=== PATIENT | female | born 1955 | race Caucasian/White ===

== ENCOUNTER → 2021-08-15 12:42 | Outpatient (CLI) | payer MEDICARE, SELFPAY ==
--- NOTE | ~2021-08-15 | MM_ITS ---
EXAMINATION: MM screening yvette BI w vega HISTORY: Screening TECHNIQUE: Craniocaudal and mediolateral oblique 3-D tomosynthesis images were obtained and synthetic 2-D images were generated. CAD analysis was submitted and interpreted. COMPARISON: 08/30/2011 BREAST PARENCHYMAL COMPOSITION: Breast composed of scattered areas of fibroglandular density FINDINGS: There is no evidence of suspicious mass, calcification, or architectural distortion to sugg est malignancy in either breast. There has been no suspicious interval change. IMPRESSION: 1. No mammographic evidence of malignancy. 2. Recommend routine screening mammography in one year. BI-RADS Category 1: Negative Reviewed, dictated and finalized at location A.
== END ==
DX: Z12.31 Encounter for screening mammogram for malignant neoplasm of breast (principal)
CPT/HCPCS: 77063; 77067

== ENCOUNTER 2021-12-27 07:40 | Outpatient (CLI) | payer MEDICARE, SELFPAY | END 2021-12-27 07:41 | disposition home or self-care (01) | LOC: ANHAUDIO 07:41 | PROVIDERS: PCP Family Medicine; Visit Provider Otolaryngology | DX: H93.13 Tinnitus, bilateral (principal); H90.3 Sensorineural hearing loss, bilateral | CPT/HCPCS: 92557; 92567 ==

== ENCOUNTER → 2022-12-04 13:43 | Outpatient (CLI) | payer MEDICARE, SELFPAY ==
--- NOTE | ~2022-12-04 | MM_ITS ---
EXAMINATION: MM scrn yvette implant BI w vega HISTORY: Screening mammogram TECHNIQUE: Craniocaudal and mediolateral oblique 3-D tomosynthesis images with implant displacement a nd synthetic 2-D images were generated. Craniocaudal and mediolateral oblique views of the breasts wi thout implant displacement were obtained using full field digital mammography. CAD analysis was submi tted and interpreted. COMPARISON: 08/15/2021, 04/28/2019, 12/26/2015 BREAST PARENCHYMAL COMPOSITION: There are scattered areas of fibroglandular density. FINDINGS: There are changes of interval bilateral breast augmentation. There is no evidence of suspic ious mass, calcification, or architectural distortion to suggest malignancy in either breast. IMPRESSION: 1. No mammographic evidence of malignancy. 2. Recommend routine screening mammography in one year. BI-RADS Category 1: Negative Reviewed, dictated and finalized at location A.
== END ==
DX: Z12.31 Encounter for screening mammogram for malignant neoplasm of breast (principal)
CPT/HCPCS: 77063; 77067

== ENCOUNTER 2024-02-18 11:00 | Outpatient (CLI) | payer MEDICARE, SELFPAY ==
--- NOTE | ~2024-02-18 | MM_ITS ---
EXAMINATION: MM scrn yvette implant BI w vega HISTORY: Screening mammogram TECHNIQUE: Craniocaudal and mediolateral oblique 3-D tomosynthesis images with implant displacement a nd synthetic 2-D images were generated. Craniocaudal and mediolateral oblique views of the breasts wi thout implant displacement were obtained using full field digital mammography. CAD analysis was submi tted and interpreted. COMPARISON: Comparison to multiple prior studies sequentially, with oldest reviewed study dated 12/25. BREAST PARENCHYMAL COMPOSITION: Dense: The breasts are heterogeneously dense, which may obscure small masses FINDINGS: There is no evidence of suspicious mass, calcification, or architectural distortion to sugg est malignancy in either breast. There has been no suspicious interval change. IMPRESSION: 1. No mammographic evidence of malignancy. 2. Recommend routine screening mammography in one year. BI-RADS Category 1: Negative Reviewed, dictated and finalized at location B.
== END 2024-02-18 11:01 | disposition home or self-care (01) ==
LOC: MICIMG 11:02
DX: Z12.31 Encounter for screening mammogram for malignant neoplasm of breast (principal)
CPT/HCPCS: 77063; 77067

== ENCOUNTER 2024-07-06 16:24 | Emergency (ER) | payer MEDICARE, SELFPAY ==
[2024-07-06 16:29] VITALS: BP 146/89; PULSE 92; RESP 20; TEMP 37.2; O2SAT 95
[2024-07-06 16:40] LABS: Glucose Point of Care 131 mg/dl (65-105)
[2024-07-06 18:30] VITALS: BP 113/86; PULSE 87; RESP 18; TEMP 36.8; O2SAT 97
--- OUTSIDE RECORDS SUMMARY | 2024-07-06 18:40 | XMS_ITS | Encounter Summary ---
Author Organization [facility] Address [address] [address] Phone Care Team Providers Care Microfilm Mounter Name Role Phone Ember Sahni MD Primary Care Provider + Encounter Details Date Type Department Care Team (Late st Contact Info) Description 03/18/2023 Orders Only [facility] [address] [facility] 5th [address] [place], [place] [id number] Scanning, Provider Social History Tobacco Use Types Packs/Day Years Used Date Smoking Tobacco: Never Smokeless Tobacco: Never AUDIT-C Answer Date Recorded Q1: How often do you have a drink containing alc ohol? 2-4 times a month 02/13/2023 Q2: How many drinks containi ng alcohol do you have on a typical day when you are drinking? 1 or 2 02/13/2023 Q3: How often do you have si x or more drinks on one occasion? Never 02/13/2023 Comments No Sex and Gender Information Value Date Recorded Sex Assigned at Not on file Legal Sex Female 2:14 AM LOOM TECHNICIAN Gender Identity Not on file Sexual Orientation Not on file documented as of this encounter Plan of Treatment Not on file documented as of this encounter Goals Goal Patient Goal Type Associated Problems Recent Progress Patient-Stated? Author CCM Chronic Pain Care Plan Chronic Care Management No change(05/08 9:34 AM LOOM TECHNICIAN) No Marla Luna, RN Note: Problem: Chronic Pain Goals: 1. Minimize further functional decline 2. Maximize quality of life 3. Control pain Strategies: - Activity/exercise program recommendation - Conservative stepwise pain medicine strategy with multi-disciplinary approach - Recommend healthy lifestyle strategies and compensatory methods as needed documented as of this encounter Procedures Procedure Name Priority Date/Time Associated Diagnosis Comments SCAN - LABS 03/18/2023 documented in this encounter Results * SCAN - LABS (03/18/2023) us Provider Scanning Final Result documented in this encounter Visit Diagnoses Not on filedocumented in this encounter Additional Health Concerns Infection Onset Date Last Indicated Resolved Time MDR gram neg/ESBL Comment:Patients who received care at a healthcare facility outside of the [place] will be placed in Contact Precautions until infection or colonization with specific highly resistant bacteria can be ruled out. Infection Prevention will arrange screening. Please contact Infection Prevention. 04/01/2023 04/01/2023 12/05/2023 7:12 AM C DT documented as of this encounter Care Teams Microfilm Mounter Relationship Specialty Start Date End Date Ember Sahni MD [address] [address] PCP - General Internal Medicine 02/11/19 documented as of this encounter
--- OUTSIDE RECORDS SUMMARY | 2024-07-06 18:40 | XMS_ITS | Clinical Summary ---
Author Organization [facility] Address [address] [facility] [place] [address] Care Team Providers Care Clerical Manager Name Role Phone Satnam Madrigal MD Primary Care Provider [phone] Jefry Cho MD Unavailable Source Comments [facility] [employer],non-owned Affiliates and Associated Physician Practices is amultiple site organization consisting of ambulatory clinics and hospital sitesin [place], [place], [place] and [place]. This disclosure is being madepursuant to the Care Everywhere program and may not contain all information available regarding this patient. Last updated 18.[facility] Allergies No known active allergies Medications * Be aware that medications may not be up to date on this document. Alwaysverify current medications with the patient. Medication Sig Dispensed Refills Start Date End Date Status levothyroxine (SYNTHROID) 100 MCG tablet Take 100 mcg by mouth 2 times daily Active escitalopram (LEXAPRO) 20 MG tablet Take 20 mg by mouth once daily 2 06/20/2017 Active celecoxib (CELEBREX) 200 MG capsule Take 200 mg by mouth once daily 1 06/19/2017 Active loratadine (CLARITIN) 10 MG tablet Take 10 mg by mouth once daily Active naltrexone (REVIA) 50 MG tablet Take 50 mg by mouth once daily Active prazosin (MINIPRESS) 1 MG capsule Take 1 mg by mouth 2 times daily Active cariprazine (VRAYLAR) 3 MG capsule Take 3 mg by mouth at bedtime Active oxyCODONE-acetaminoph en (PERCOCET) 10-325 MG tabletIndications:Opal n Take 1 tablet by mouth every 6 hours as needed for Pain Reasons: Pain 75 tablet 12/08/2017 Active Active Problems Problem Noted Date Diagnosed Date Iliotibial band syndrome of left side 2019 Presence of left artificial knee joint 9 Status post left knee replacement 11/06/2017 Alcoholism 10/17/2017 Avascular necrosis of left femur 07/21/2017 Bipolar disorder 07/21/2017 Hypertensive disorder 07/21/2017 Hyperlipidemia 07/21/2017 Hypothyroidism 05/12/2014 Social History Tobacco Use Types Packs/Day Years Used Date Smoking Tobacco: Never Smokeless Tobacco: Never Alcohol Use Standard Drinks/Week Comments Yes 0 (1 standard drink = 0.6 oz pur e alcohol) rarely Sex and Gender Information Value Date Recorded Sex Assigned at Not on file Gender Identity Not on file Sexual Orientation Not on file Last Filed Vital Signs Vital Sign Reading Time Taken Comments Blood Pressure 108/68 11/08/2017 8:04 AM CDT Pulse 105 11/08/2017 8:04 AM CDT Temperature 36.9 C (98.4 F) 11/08/2017 8:04 AM CDT Respiratory Rate 18 11/08/2017 8:04 AM CDT Oxygen Saturation 90% 11/08/2017 8:04 AM CDT Inhaled Oxygen Concentration - - Weight 73 kg (161 lb) 11/06/2017 6:55 AM CDT Height 160 cm (5' 3 ) 11/06/2017 6:55 AM CDT Body Mass Index 28.52 11/06/2017 6:55 AM CDT Plan of Treatment Health Maintenance Due Date Last Done Comments BONE DENSITY TESTING 1955 COLOGUARD (AGES 45-75) - COLON CA SCREENING 1954 COLON MONITORING 1954 COLONOSCOPY - COLON CA SCREENING 1954 CT COLONOGRAPHY - COLON CA SCREENING 1954 Colorectal Cancer Screening 1954 FIT - COLON CA SCREENING 1954 FLEX SIG - COLON CA SCREENING 1954 LIPID TESTING 1954 MAMMOGRAM 1954 HEPATITIS C SCREENING 03/26/1972 DTAP/TDAP/TD VACCINES (1 - Tdap) 1973 PNEUMOCOCCAL VACCINE 50+ (1 of 2 - PCV) 1973 ZOSTER VACCINE (1 of 2) 2004 COVID-19 VACCINE (2023- season) 2024 INFLUENZA VACCINE (#1) 2024 7, 02/26/2017, 03/11/2015, Additional history exists Respiratory Syncytial Virus (RSV) Vaccine Pt: or over 60 yrs (1 - 1-dose 75+ series) 2029 HEPATITIS B VACCINE Aged Out No longe r eligible based on patient's age to complete this topic HIB VACCINE Aged Out No longer eligi ble based on patient's age to complete this topic HPV VACCINE Aged Out No longer eligi ble based on patient's age to complete this topic MENINGOCOCCAL (Group B) VACCINE Aged Out No longer eligible based on patient's age to complete this topic MENINGOCOCCAL VACCINE Aged Out No lavern maria de jesus eligible based on patient's age to complete this topic Medical Devices Implanted Type Area Freight Receiver Device Identifier Shelf Expiration Date Model / Serial / Lot Cmnt Bone Cblt 40gm Hvisc Strl Implanted:Qty: 1 on 11/06/2017 by Jefry Cho MD at [facility] Left: Knee [employer] 01/09/2019 600-15-000 / / [id number] Tray Tib 67mm Kn Cocr I Beam Implanted:Qty: 1 on 11/06/2017 by Jefry Cho MD at [facility] Left: Knee [employer] 08/04/2027 [id number] / / [id number] Cmpnt Fem Kn Lt Cr Cmnt Prm Vngrd Intlk 60mm Implanted:Qty: 1 on 11/06/2017 by Jefry Cho MD at [facility] Left: Knee [employer] 07/16/2027 [id number] / / [id number] Cmpnt Ptlr 28mm 1 Pg Wire Ascnt Arcm Kn Implanted:Qty: 1 on 11/06/2017 by Jefry Cho MD at [facility] Left: Knee [employer] 10/21/2022 [id number] / / [id number] [id number] Vngrd Arcm Kn Ant Stab Implanted:Qty: 1 on 11/06/2017 by Jefry Cho MD at [facility] Left: Knee [employer] 10/08/2022 [id number] / / [id number] Advance Directives * Full Code (Latest Code Status on File) Date Activated Date Inactivated Comments 11/06/2017 12:11 PM 11/08/2017 12:42 PM Care Teams Clerical Manager Relationship Specialty Start Date End Date Satnam Madrigal MD PCP - General Internal Medicine 07/21/17 [place] [id number] [address] Orthopedic Surgery 07/21/17
--- OUTSIDE RECORDS SUMMARY | 2024-07-06 18:40 | XMS_ITS | Patient Health Summary ---
Author Organization [facility] Address [address] [facility] [place] [address] Care Team Providers Care Manager Sales And Marketing Name Role Phone Satnam Madrigal MD Primary Care Provider [phone] Jefry Cho MD Unavailable [phone] Note from [facility],non-owned Affiliates and Associated Physician Practices is amultiple site organization consisting of ambulatory clinics and hospital sitesin [place], [place], [place] and [place]. This disclosure is being madepursuant to the Care Everywhere program and may not contain all information available regarding this patient. Last updated 18.[facility] Allergies No known active allergies Medications * Be aware that medications may not be up to date on this document. Alwaysverify current medications with the patient. * levothyroxine (SYNTHROID) 100 MCG tablet Take 100 mcg by mouth 2 times daily * escitalopram (LEXAPRO) 20 MG tablet(Started 06/20/2017) Take 20 mg by mouth once daily 2 refills left * celecoxib (CELEBREX) 200 MG capsule(Started 06/19/2017) Take 200 mg by mouth once daily 1 refill left * loratadine (CLARITIN) 10 MG tablet Take 10 mg by mouth once daily * naltrexone (REVIA) 50 MG tablet Take 50 mg by mouth once daily * prazosin (MINIPRESS) 1 MG capsule Take 1 mg by mouth 2 times daily * cariprazine (VRAYLAR) 3 MG capsule Take 3 mg by mouth at bedtime * oxyCODONE-acetaminophen (PERCOCET) 10-325 MG tablet(Started 12/08/2017) Take 1 tablet by mouth every 6 hours as needed for Pain Reasons: Pain Active Problems Problem Noted Date Diagnosed Date [...] Mass Index 28.52 11/06/2017 6:55 AM CDT Medical Devices Implanted Type Area Renewable Energy Trader Device Identifier Shelf Expiration Date Model / Serial / Lot Cmnt Bone Cblt 40gm Hvisc Strl Implanted:Qty: 1 on 11/06/2017 by Jefry Cho MD at [facility] Left: Knee [employer] 01/09/2019 600-15-000 / / [id number] Tray Tib 67mm Kn Cocr I Beam Implanted:Qty: 1 on 11/06/2017 by Jefry Cho MD at [facility] Left: Knee [employer] 08/04/2027 [id number] / / [id number] Cmpnt Fem Kn Lt Cr Cmnt Prm Vngrd Intlk 60mm Implanted:Qty: 1 on 11/06/2017 by Jefyr Cho MD at [facility] Left: Knee [employer] 07/16/2027 [id number] / / [id number] Cmpnt Ptlr 28mm 1 Pg Wire Ascnt Arcm Kn Implanted:Qty: 1 on 11/06/2017 by Jefry Cho MD at [facility] Left: Knee [employer] 10/21/2022 [id number] / / [id number] Brng [id number] Vngrd Arcm Kn Ant Stab Implanted:Qty: 1 on 11/06/2017 by Jefry Cho MD at [facility] Left: Knee [employer] 10/08/2022 [id number] / / [id number] Procedures * XR KNEE LEFT 3VW(Performed 03/30/2019) Performed for Aftercare following left knee joint replacement surgery * XR KNEE LEFT 3VW(Performed 12/18/2017) Performed for Acute pain of left knee * HGB HCT PANEL(Performed 11/08/2017) * HGB HCT PANEL(Performed 11/07/2017) * NEURAXIAL BLOCK(Performed 11/06/2017) * ARTHROPLASTY TOTAL KNEE(Performed 11/06/2017) * COMPREHENSIVE METABOLIC PANEL(Performed 10/13/2017) Performed for Preop examination * CBC W AUTO DIFFERENTIAL(Performed 10/13/2017) Performed for Preop examination * CULTURE MSSA/MRSA(Performed 10/13/2017) Performed for Preop examination * EKG 12-LEAD(Performed 10/13/2017) Performed for Preop examination * XR KNEE LEFT 3VW(Performed 07/21/2017) Performed for Acute pain of left knee Results * XR KNEE LEFT 3VW (03/30/2019 3:54 PM HR SHARED SERVICES CONSULTANT) Only the most recent of3 resultswithin the time period is included. Anatomical Region Laterality Modality Lower Extremity Computed Radiogr aphy Narrative 03/30/2019 3:55 PM HR SHARED SERVICES CONSULTANT Kristy Schaeffer RT(R) 04/15/2019 5:45 PM See progress notes for results Jefry Cho MD DIAGNOSTIC IMAGING O RDERABLES * (ABNORMAL) HGB HCT PANEL (11/08/2017 4:38 AM CDT) Only the most recent of2 resultswithin the time period is included. Hemoglobin 11.4(L) 12.0 - 15.6 gm/dL 11/08/2017 5:17 AM CDT [facility] Hematocrit 35.8(L) 35.9 - 45.5 % 11/08/2017 5:17 AM CDT [facility] Blood BLOOD SPECIMEN / Unknown Venipuncture / Unknown 11/08/2017 4:38 AM CDT 11/08/2017 5:04 AM CDT Jefry Cho MD LAB - HEMATOLOGY ORD ERABLES Performing Organization Address City/[facility]/ZIP Co de Phone Number [facility] [address] [place], [place] [id number] * CULTURE MSSA/MRSA (10/13/2017 2:31 PM CDT) Pathologist [facility] Culture Negative for Staphylococcus aureus (MRSA/MSSA) LUIS ANGEL 10/15/2017 7:51 AM CDT [facility] Microbiology SPECIMEN FROM NASAL FOSSAE / Unknown Collection / Unknown 10/13/2017 2:31 PM CDT 10/13/2017 4:04 PM CDT Jefry Cho MD LAB - MICROBIOLOGY O RDERABLES [facility] [address] [place] [address], [facility] [phone] * (ABNORMAL) CBC W AUTO DIFFERENTIAL (10/13/2017 2:31 PM CDT) WBC 5.5 4.4 - 10.7 x10E9/L 10/13/2017 4:08 PM CDT [facility] WBC Corrected x10E9/L 10/13/2017 4:08 PM CDT [facility] RBC 4.00 3.80 - 5.20 x10E12/L 10/13/2017 4:08 PM CDT [facility] Hemoglobin 13.6 12.0 - 15.6 gm/dL 10/13/2017 4:08 PM CDT [facility] Hematocrit 42.3 35.9 - 45.5 % 10/13/2017 4:08 PM CDT [facility] MCV 105.8(H) 80.7 - 98.3 fl 10/13/2017 4:08 PM CDT [facility] MCH 34.0 26.7 - 34.0 pg 10/13/2017 4:08 PM CDT [facility] MCHC 32.2 30.8 - 35.9 gm/dL 10/13/2017 4:08 PM CDT [facility] Platelet Count 283 153 - 416 x10E9/L 10/13/2017 4:08 PM CDT [facility] RDW-CV 12.5 12.1 - 14.9 % 10/13/2017 4:08 PM CDT [facility] MPV 9.7 9.4 - 12.9 fl 10/13/2017 4:08 PM CDT [facility] Neutrophils % 53.5 44.0 - 73.0 % 10/13/2017 4:08 PM CDT [facility] Lymphocytes % 31.0 20.0 - 43.0 % 10/13/2017 4:08 PM CDT [facility] Monocytes % 11.3 5.0 - 13.0 % 10/13/2017 4:08 PM CDT [facility] Eosinophils % 3.3 0.0 - 6.0 % 10/13/2017 4:08 PM CDT [facility] Basophils % 0.4 0.0 - 2.0 % 10/13/2017 4:08 PM CDT [facility] Immature Granulocytes 0.5 0 - 1 % 10/13/2017 4:08 PM CDT [facility] Neutrophil Absolute 2.94 2.01 - 7.14 x10E9/L 10/13/2017 4:08 PM CDT [facility] Lymphocytes Absolute 1.70 1.07 - 3.94 x10E9/L 10/13/2017 4:08 PM CDT [facility] Monocytes Absolute 0.62 0.26 - 1.07 x10E9/L 10/13/2017 4:08 PM CDT [facility] Eosinophils Absolute 0.18 0 - 0.47 x10E9/L 10/13/2017 4:08 PM CDT [facility] Basophils Absolute 0.02 0 - 0.08 x10E9/L 10/13/2017 4:08 PM CDT [facility] Immature Granulocytes Absolute 0.03 0.00 - 0.06 x10E9/L 10/13/2017 4:08 PM CDT [facility] nRBC Auto 0 /100 WBC 10/13/2017 4:08 PM CDT [facility] Blood BLOOD SPECIMEN / Unknown Venipuncture / Unknown 10/13/2017 2:31 PM CDT 10/13/2017 4:04 PM CDT Jefry Cho MD LAB - HEMATOLOGY ORD ERABLES [facility] [address] [place] [address] * (ABNORMAL) COMPREHENSIVE METABOLIC PANEL (10/13/2017 2:31 PM CDT) Glucose 76 74 - 106 mg/dL 10/13/2017 4:36 PM CDT [facility] Sodium 140 136 - 145 mmol/L 10/13/2017 4:36 PM CDT [facility] Potassium 3.6 3.5 - 5.1 mmol/L 10/13/2017 4:36 PM CDT [facility] Chloride 105 98 - 107 mmol/L 10/13/2017 4:36 PM CDT [facility] CO2 24 22 - 31 mmol/L 10/13/2017 4:36 PM CDT [facility] Calcium 9.0 8.5 - 10.1 mg/dL 10/13/2017 4:36 PM [facility] Anion Gap 11 8 - 16 mmol/L 10/13/2017 4:36 PM CDT [facility] BUN 13 7 - 21 mg/dL 10/13/2017 4:36 PM CDT [facility] Creatinine 0.91 0.50 - 1.30 mg/dL 10/13/2017 4:36 PM CDT [facility] Alkaline Phosphatase 139(H) 38 - 126 U/L 10/13/2017 4:36 PM CDT [facility] ALT 118(H) 13 - 61 U/L 10/13/2017 4:36 PM CDT [facility] AST 119(H) 5 - 40 U/L 10/13/2017 4:36 PM CDT [facility] Protein Total 7.2 6.4 - 8.2 gm/dL 10/13/2017 4:36 PM CDT [facility] Albumin 3.9 3.4 - 5.0 gm/dL 10/13/2017 4:36 PM CDT [facility] Bilirubin Total 0.3 0.2 - 1.0 mg/dL 10/13/2017 4:36 PM CDT [facility] eGFR by MDRD >60 >60 mL/min/1.7 3m2 10/13/2017 4:36 PM CDT [facility] eGFR by MDRD >60 >60 mL/min/1.7 3m2 10/13/2017 4:36 PM CDT [facility] Blood BLOOD SPECIMEN / Unknown Venipuncture / Unknown 10/13/2017 2:31 PM CDT 10/13/2017 4:04 PM CDT Jefry Cho MD LAB - CHEMISTRY ORDE [facility] Performing Organization Address City/[facility] Co de Phone Number [facility] [address] [place] [address] * EKG 12-LEAD (10/13/2017 1:50 PM CDT) Ventricular Rate 89 BPM [facility] Atrial Rate 89 BPM [facility] P-R Interval 176 ms [facility] QRS Duration ms 116 ms [facility] Q-T Interval ms 404 ms [facility] QTC Calculation (Bezet) 491 ms [facility] Calculated P [place] 43 degrees [facility] Calculated R [place] -48 degrees [facility] Calculated T [place] 34 degrees [facility] Interpretation EKG Normal sinus rhythm Possible Left atrial enlargement Left anterior fascicular block Left ventricular hypertrophy with QRS widening Cannot rule out Septal infarct , age undetermined Abnormal ECG No previous ECGs available Confirmed by MD MILA, MARY ([id number]) on 10/14/2017 9:10:31 AM [facility] 10/13/2017 1:50 PM CDT 10/14/2017 9:10 AM CDT Jefry Cho MD ECG ORDERABLES Performing Organization Address City/[facility]/ZIP Co de Phone Number [facility] Care Teams Manager Sales And Marketing Relationship Specialty Start Date End Date Satnam Madrigal MD PCP - General Internal Medicine 07/21/17 [place] [address] [address] Orthopedic Surgery 07/21/17
--- OUTSIDE RECORDS SUMMARY | 2024-07-06 18:40 | XMS_ITS | Encounter Summary ---
Author Organization [facility] Address [address] [place] [address] Care Team Providers Care Stoner Out Name Role Phone Ember Sahni MD Primary Care Provider + Encounter Details Date Type Department Care Team (Late st Contact Info) Description 03/28/2023 Telephone [facility] [address] [place] [id number] Josefina Cruz RN Social History Tobacco Use Types Packs/Day Years Used Date Smoking Tobacco: Never Smokeless Tobacco: Never AUDIT-C Answer Date Recorded Q1: How often do you have a drink containing alc ohol? 2-4 times a month 04/01/2023 Q2: How many drinks containi ng alcohol do you have on a typical day when you are drinking? 1 or 2 04/01/2023 Q3: How often do you have si x or more drinks on one occasion? Never 04/01/2023 Personal Safety Answer Date Recorded Have you ever been in or are you currently in a harmful physical or emotional relationship or is someone making you feel afraid or unsafe? Denies 04/01/2023 Comments No Sex and Gender Information Value Date Recorded Sex Assigned at Not on file Legal Sex Female 2:14 AM PATTERN MECHANIC Gender Identity Not on file Sexual Orientation Not on file documented as of this encounter Plan of Treatment Not on file documented as of this encounter Goals Goal Patient Goal Type Associated Problems Recent Progress Patient-Stated? Author CCM Chronic Pain Care Plan Chronic Care Management No change(05/08 9:34 AM PATTERN MECHANIC) No Marla Luna, RN Note: Problem: Chronic Pain Goals: 1. Minimize further functional decline 2. Maximize quality of life 3. Control pain Strategies: - Activity/exercise program recommendation - Conservative stepwise pain medicine strategy with multi-disciplinary approach - Recommend healthy lifestyle strategies and compensatory methods as needed documented as of this encounter Visit Diagnoses Not on filedocumented [...] documented as of this encounter Care Teams Stoner Out Relationship Specialty Start Date End Date Ember Sahni MD [address] [address] PCP - General Internal Medicine 02/11/19 documented as of this encounter
--- OUTSIDE RECORDS SUMMARY | 2024-07-06 18:40 | XMS_ITS | Referral Summary ---
Author Organization [facility] [employer] Address [address] [place] [address] Care Team Providers Care Blocking Machine Operator Second Name Role Phone Satnam Madrigal MD Primary Care Provider [phone] Jefry Cho MD Unavailable [phone] Source Comments [facility] [employer],non-owned Affiliates and Associated Physician Practices is amultiple site organization consisting of ambulatory clinics and hospital sitesin [place], [place], [place] and [place]. This disclosure is being madepursuant to the Care Everywhere program and may not contain all information available regarding this patient. Last updated 18.[facility] [employer] [facility] Allergies No known active allergies Medications * [...] Mass Index 28.52 11/06/2017 6:55 AM CDT Functional Status Functional Status Response Date of Assess ment Is person deaf or have serious hearing difficult y? No 11/06/2017 Is person blind or have serious difficulty seein g? No 11/06/2017 Does person have serious dif ficulty walking/climbing stairs? Yes 11/06/2017 Does person have difficulty dressing/bathing? No 11/06/2017 Does person have difficulty doing errands alone? No 11/06/2017 Cognitive Status Response Date of Assessm ent Does person have difficulty concentrating/remembering/making decisions? No 11/06/2017 Plan of Treatment Not on file Medical Devices Implanted Type Area Laser Specialist Device Identifier Shelf Expiration Date Model / Serial / Lot Cmnt Bone Cblt 40gm Hvisc Strl Implanted:Qty: 1 on 11/06/2017 by Jefry Cho MD at [facility] Left: Knee [employer] 01/09/2019 [id number] / / [id number] Tray Tib 67mm Kn Cocr I Beam Implanted:Qty: 1 on 11/06/2017 by Jefry Cho MD at [facility] Left: Knee [employer] 08/04/2027 [id number] / / [id number] Cmpnt Fem Kn Lt Cr Cmnt Prm Vngrd Intlk 60mm Implanted:Qty: 1 on 11/06/2017 by Jefry Cho MD at [facility] Left: Knee [employer] 07/16/2027 [id number] / / [id number] Cmpnt Ptlr 28mm 1 Pg Wire Ascnt Arcm Kn Implanted:Qty: 1 on 11/06/2017 by Jefry Cho MD at [facility] Left: Knee [employer] 10/21/2022 [id number] / / [id number] Vngrd Arcm Kn Ant Stab Implanted:Qty: 1 on 11/06/2017 by Jefry Cho MD at [facility] Left: Knee [employer] 10/08/2022 [id number] / / [id number] Advance Directives * Full Code (Latest Code Status on File) Date Activated Date Inactivated Comments 11/06/2017 12:11 PM 11/08/2017 12:42 PM Care Teams Blocking Machine Operator Second Relationship Specialty Start Date End Date Satnam Madrigal MD PCP - General Internal Medicine 07/21/17 [place] [id number] [place] [id number] Orthopedic Surgery 07/21/17
--- OUTSIDE RECORDS SUMMARY | 2024-07-06 18:41 | XMS_ITS | Clinical Summary ---
Author Organization [facility] Address [address], [facility] [address] [place] [address] Phone Care Team Providers Care Basket Bottom Machine Operator Name Role Phone Chriss Ramos MD Unavailable [phone] Arjun Naqvi MD Unavailable [phone] Luis Khoury DPM Unavailable [phone] Allergies No known active allergies Medications Cariprazine HCl (VRAYLAR) 3 MG Capsule Take 1 Cap by mouth nightly. Active naltrexone (DEPADE) 50 MG Tablet TK 1 T PO QHS 0 04/09/2017 Active escitalopram (LEXAPRO) 20 MG Tablet Take 1 Tab by mouth daily. 2 06/20/2017 Active prazosin (MINIPRESS) 1 MG Capsule Take 1 Cap by mouth daily. 07/07/2017 Active naproxen sodium (ANAPROX) 220 MG Tablet Take by mouth. Active loratadine-pseud oephedrine (CLARITIN-D 24 HOUR) 10-240 MG TABLET SR 24 HR Take 1 Tab by mouth Daily as needed for Other (Congestion ). 90 Tab 1 10/28/2017 Active levothyroxine (SYNTHROID) 100 MCG Tablet Take 1 Tab by mouth daily. 90 Tab 11/14/2017 Active Active Problems Problem Noted Date Diagnosed Date Avascular necrosis of left femur 10/23/2017 Elevated liver enzymes 10/23/2017 Alcoholism 10/17/2017 Contracture of joint of right foot 09/26/2016 Pain in left foot 09/26/2016 Stress fracture of left foot with routine healin g 09/26/2016 Hallux valgus of left foot 09/26/2016 Hypothyroidism Bipolar 2 disorder IBS (irritable bowel syndrome) Hyperlipidemia Immunizations Immunization Administration Dates Next Due Covid-19, Mrna, Lnp-s, Pf, 3 0 Mcg/0.3 Ml Dose ([employer]) 07/15/2020,06/17/2020 Hepatitis A Vaccine 09/25/2007 Influenza Vaccine greater than 3 yrs 05/2016,02/26/2017,05/12/2013,2012 Influenza Vaccine, Quadrivalent, PF 03/11/2015 TDAP Vaccine 10/24/2008 Zoster Vaccine, live 03/12/2016 Family History Medical History Relation Name Comments No Known Problems Brother Melanoma Father Depression Mother Lung Cancer Mother Relation Name Status Comments Brother Alive Father (Age 75) Mother (Age 70) Social History Tobacco Use Types Packs/Day Years Used Date Smoking Tobacco: Never Smokeless Tobacco: Never Tobacco Cessation:Counseling Given: No Alcohol Use Standard Drinks/Week Comments Yes 0 (1 standard drink = 0.6 oz pur e alcohol) 1-2 glasses of wine/week Comments No Sex and Gender Information Value Date Recorded Sex Assigned at Not on file Legal Sex Female 11:58 PM CDT Gender Identity Not on file Sexual Orientation Not on file Last Filed Vital Signs Vital Sign Reading Time Taken Comments Blood Pressure 132/90 10/23/2017 2:11 PM CDT Pulse 96 10/23/2017 2:11 PM CDT Temperature 36.9 C (98.4 F) 10/23/2017 2:11 PM CDT Respiratory Rate 20 10/23/2017 2:11 PM CDT Oxygen Saturation 97% 10/23/2017 2:11 PM CDT Inhaled Oxygen Concentration - - Weight 73.8 kg (162 lb 12.8 oz) 10/23/2017 2:11 PM CDT Height 160 cm (5' 3 ) 10/23/2017 2:11 PM CDT Body Mass Index 28.84 10/23/2017 2:11 PM CDT Plan of Treatment Health Maintenance Due Date Last Done Comments Hepatitis C Virus (HCV) Screening 1954 Cologuard 2004 Immunochemical Fecal Occult Blood 2004 Pneumococcal Immunization (50+ years) (1 of 1 - PCV) 2004 Td Immunization Every 10 Years (Adults With 1 Tdap) 10/24/2018 10/24/2008 Colonoscopy 05/11/2022 05/11/2012 Colorectal Cancer Screening 05/11/2022 Influenza Immunization (#1) 2024 09/2 09/2019, 02/24/2018, 03/12/2017, Additional history exists SARS-COV-2 Immunization ( season) 2024 02/05/2021, 07/15/2020, 06/17/2020 Respiratory Syncytial Virus (RSV) Immunization (Adult) (1 - 1-dose 75+ series) 2029 DEXA Bone Density Discontinued 12/26/2015, 12/26/2015 Mammogram Discontinued 12/26/2015, 12/26/2015 Zoster Immunization Completed 03/21/2018, 08/12/2017, 03/12/2016 Hepatitis B Immunization Aged Out No longer eligible based on patient's age to complete this topic Meningococcal Immunization (ACWY) Aged Out No longer eligible based on patient's age to complete this topic Rotavirus Immunization Aged Out No lo nger eligible based on patient's age to complete this topic Medical Devices Implanted Type Area Microstrategy Architect Device Identifier Shelf Expiration Date Model / Serial / Lot Scrw Bone Reconstruction Frs 3.0 X 14mm - [id number] Implanted:Qty: 1 on 11/22/2016 by Luis Khoury DPM at [facility] IMPLANT Left: Foot BIOMET / TRAUMA [id number] / [id number] / NA Scrw Bone Reconstruction Frs 3.0 X 16mm - [id number] Implanted:Qty: 1 on 11/22/2016 by Luis Khoury DPM at [facility] IMPLANT Left: Foot BIOMET / TRAUMA [id number] / [id number] / NA Easyclip Staple [id number] - [id number] Implanted:Qty: 1 on 11/22/2016 by Luis Khoury DPM at [facility] IMPLANT Left: Foot ISABELLE / ORTHOPAEDICS 10/09/2020 [id number] / / [id number] Procedures Procedure Name Priority Date/Time Associated Diagnosis Comments DOUGLAS BONE DENSITOMETRY AXIAL SKELETON Routine 12/26/2015 DOUGLAS SCREENING BILATERAL DIGI GREGG W CAD Routine 12/26/2015 from Last 3 Months or Most Recently Relevant to Health Maintenance Results * DOUGLAS BONE DENSITOMETRY AXIAL SKELETON (12/26/2015) Anatomical Region Laterality Modality BODY N/A Other Alva Fraser MD IMG DEXA ORDERABLES Kenia l Result * DOUGLAS SCREENING BILATERAL DIGITAL W CAD (12/26/2015) Anatomical Region Laterality Modality breast Bilateral Other Alva Fraser MD IMG MAMMO ORDERABLES Fin al Result from Last 3 Months or Most Recently Relevant to Health Maintenance Care Teams Basket Bottom Machine Operator Relationship Specialty Start Date End Date Chriss Ramos MD [address] [place] [address] Consulting Physician Orthopaedic Surgery 06/12/16 Arjun Naqvi MD [address] [place] [id number] Consulting Physician Psychiatry 06/12/16 Luis Khoury DPM [address] [address] Consulting Physician Podiatry 10/11/16
--- OUTSIDE RECORDS SUMMARY | 2024-07-06 18:41 | XMS_ITS | Clinical Summary ---
Author Organization [facility] Address [address] [place] [address] Phone Care Team Providers Care Network Cable Installer Name Role Phone Satnam Madrigal MD Primary Care Provider [phone] Allergies No known active allergies Medications No known medications Active Problems Problem Noted Date Diagnosed Date Abnormal mammogram 08/27/2013 Resolved Problems Problem Noted Date Diagnosed Date Resolved Date BI-RADS category 3 mammogram result 08/23/2013 08/27/2013 Overview (08/23/2013): Bi Rad 4 Social History Tobacco Use Types Packs/Day Years Used Date Smoking Tobacco: Never Alcohol Use Standard Drinks/Week Comments Not Asked 0 (1 standard drink = 0.6 oz pur e alcohol) Comments No Sex and Gender Information Value Date Recorded Sex Assigned at Not on file Legal Sex Female 9:07 AM CDT Gender Identity Not on file Sexual Orientation Not on file Occupation Industry Job Start Date Job End Date Not on file Not on file Not on file Not on file Last Filed Vital Signs Vital Sign Reading Time Taken Comments Blood Pressure 113/70 08/27/2013 9:29 AM CDT Pulse - - Temperature - - Respiratory Rate - - Oxygen Saturation - - Inhaled Oxygen Concentration - - Weight 62.1 kg (137 lb) 08/27/2013 9:29 AM CDT Height 162.6 cm (5' 4 ) 08/27/2013 9:29 AM CDT Body Mass Index 23.52 08/27/2013 9:29 AM CDT Plan of Treatment Health Maintenance Due Date Last Done Comments DTAP/TDAP/TD VACCINES (1 - Tdap) 1973 COLORECTAL SCREENING 1999 Colorectal Cancer Screening 1999 FIT-DNA Q 3 years 1999 FIT/FOBT Q 1 year 1999 Flex Sig/CT Colonography Q 5 years 1999 PNEUMOCOCCAL VACCINE 65+ YEA RS (1 of 1 - PCV) 2004 ZOSTER VACCINE (1 of 2) 2004 BREAST CANCER SCREENING 08/23/2014 08/24/19 14, 08/05/2013, 07/29/2012 OSTEOPOROSIS SCREENING 2019 INFLUENZA VACCINE (#1) 2023 RSV VACCINE (60+ or ) (1 - 1-dose 75+ series) 2029 Procedures Procedure Name Priority Date/Time Associated Diagnosis Comments MAMMO DIAGNOSTIC UNI LEFT W OR WO CAD Routine 08/23/2013 from Last 3 Months or Most Recently Relevant to Health Maintenance Results * MAMMO DIGITAL DIAG UNI LEFT (08/23/2013) Anatomical Region Laterality Modality Breast Left Other [facility] Dolores Fraser MD MAMMO ORDERABLES Final R esult from Last 3 Months or Most Recently Relevant to Health Maintenance [place] [address] [place] [id number] Care Teams Network Cable Installer Relationship Specialty Start Date End Date Satnam Madrigal MD [address] [place] [address] PCP - General Internal Medicine 08/27/13
--- OUTSIDE RECORDS SUMMARY | 2024-07-06 18:41 | XMS_ITS | Referral Summary ---
Author Organization [facility] Address [address] [place] [address] Care Team Providers Care Reinsurance Clerk Name Role Phone Ember Sahni MD Primary Care Provider + Encounters Date Type Department Care Team Description 07/06/2024 [facility] [address] [place] [address] 5th [place] [address] Mary Hurtado 06/18/2024 2:50 PM CORPORATE COMMUNICATIONS ASSOCIATE Clinical Support [facility] [address] [place] [address] 5th [place] [id number] Osteopenia of left hip (Primary Dx); Postmenopause 05/28/2024 [facility] Formerly [facility] [facility] 5th [place] [address] Ember Jimenez MBA Info 05/26/2024 10:00 AM CORPORATE COMMUNICATIONS ASSOCIATE Office Visit [facility] [address] [place] [address] 5th [place] [address] Ember Sahni MD Hypothyroidism determined by thyroid function test (Primary Dx); Hypothyroidism, unspecified type; Alcoholism (CMS/HCC) ([facility]); Vitamin B12 deficiency 05/21/2024 [facility] [address] [place] [address] 5th [place] [address] Ember Jimenez MBA Medication correction 05/03/2024 [facility] [address] [place] [address] 5th [place] [address] PablitoMerlyn casehy 04/30/2024 Orders Only [facility] [address] [facility] 5th [place] [address] Ember Sahni MD Postmenopause (Primary Dx) 04/30/2024 Telephone [facility] [address] [facility] 5th [place] [address] Ember Jimenez MBA Discuss her visit with Ann from Last 3 Months Allergies Active Allergy Reactions Criticality Noted Date Comments Topiramate Mental status changes Low 11/27/2023 Mental status changes on 50 mg BID Medications ARIPiprazole (ABILIFY) 5 mg tabletIndicati ons:Depression Treatment Adjunct Take 1 tablet (5 mg total) by mouth nightly Active traZODone (DESYREL) 100 mg tabletIndicati ons:insomnia associated with depression Take 1 tablet (100 mg total) by mouth nightly at bedtime 2 Active buPROPion XL (WELLBUTRIN XL) 300 mg 24 hr tablet Take 1 tablet (300 mg total) by mouth every morning 4 Active vortioxetine (TRINTELLIX) 20 mg tabletIndicati ons:major depressive disorder Take 1 tablet (20 mg total) by mouth nightly Active sennosides 8.6 mg capsule Take 1 tablet/capsule by mouth as needed Active levothyroxine (SYNTHROID) 88 mcg tablet TAKE 1 TABLET(88 MCG) BY MOUTH EVERY OTHER DAY 45 tablet 3 4 Active levothyroxine (SYNTHROID) 100 mcg tablet TAKE 1 TABLET BY MOUTH EVERY OTHER DAY; ALTERNATING EVERY OTHER DAY WITH LEVOTHYROXINE 88 MCG 45 tablet 3 4 01/09/20 25 Active loratadine-pse udoephedrine (Loratadine-D) 5-120 mg tablet extended release 12 hr Take 1 tablet by mouth 2 (two) times a day 180 tablet 3 5 05/21/19 26 Active buPROPion XL (WELLBUTRIN XL) 150 mg 24 hr tablet Take 1 tablet (150 mg total) by mouth daily Active multivitamin tabletIndicati ons:Vitamin Deficiency Prevention Take 1 tablet by mouth Active Active Problems Problem Noted Date Diagnosed Date Hammer toe of right foot 11/11/2023 Tailor's bunion of right foot 11/11/2023 Cervical radiculopathy 05/08/2023 Closed fracture of right olecranon process 03/27 Sacroiliitis (HCC) - Left 02/06/2023 Greater trochanteric bursitis of right hip 12/17 Gait instability 12/17/2022 Neck pain 12/17/2022 Closed fracture of proximal end of right humerus, initial encounter 06/14/2022 Closed fracture of right proximal humerus 2022 Overview (06/06/2022): Added automatically from request for surgery [id number] S/P reverse total shoulder arthroplasty, right 0 05/22/2022 Glenohumeral arthritis, right 05/22/2022 Ptosis of breast 12/19/2021 Overview (12/19/2021): Added automatically from request for surgery [id number] Vitamin B12 deficiency 09/13/2020 Physical exam 09/13/2020 Vitamin D deficiency 09/13/2020 Elevated glucose 09/13/2020 Encounter for long-term (current) use of other m edications 09/13/2020 Acute pain of right shoulder 04/27/2020 Arthritis of right shoulder region 04/27/2020 Irritant contact dermatitis due to other chemica l products 04/27/2020 IBS (irritable bowel syndrome) 08/10/2019 Constipation 08/10/2019 Urinary incontinence 08/10/2019 Iliotibial band syndrome of left side 2019 Presence of left artificial knee joint 9 Herpes zoster without complication 04/14/2018 Hypothyroidism determined by thyroid function te st 02/24/2018 Elevated liver enzymes 10/23/2017 Alcoholism ([facility]) 10/17/2017 Avascular necrosis of left femur 07/21/2017 Bipolar 2 disorder ([facility]) 07/21/2017 Hyperlipidemia 07/21/2017 Hypertensive disorder 07/21/2017 Contracture of joint of right foot 09/26/2016 Hallux valgus of left foot 09/26/2016 Pain in left foot 09/26/2016 Stress fracture of left foot with routine healin g 09/26/2016 Abnormal mammogram 08/27/2013 Hypothyroidism Bipolar 1 disorder Alcohol use disorder, severe , in early remission, dependence Immunizations Immunization Administration Dates Next Due Hep A, Adult 09/25/2007,05/12/2007 Influenza, Quad, Adjuvantate d, Intramuscular 03/13/2022,02/04/2020 Influenza, Quadrivalent, Qing l Culture-based MDCK, Antibiotic Free, Intramuscular 02/24/2018 Influenza, Quadrivalent, Hig h Dose, Preservative Free, Intrr 02/19/2021 Influenza, Quadrivalent, Spl it, Preservative Free, Intramuscular 03/11/2015 Influenza, Trivalent, IM (MDV) 7,02/26/2017,05/12/2013,03/04 Influenza, Trivalent, Preser vative Free, Intramuscular 02/25/2017 Pneumococcal Conjugate PCV 13 03/15/2020 Tdap 03/14/2020,10/24/2008,05/12/2008 ZOSTER LIVE 03/12/2016 ZOSTER Recombinant 03/21/2018,08/12/2017 Social History Tobacco Use Types Packs/Day Years Used Date Smoking Tobacco: Never Smokeless Tobacco: Never Tobacco Cessation:Counseling Given: Not Answered AUDIT-C Answer Date Recorded Q1: How often do you have a drink containing alc ohol? 2-4 times a month 11/25/2023 Q2: How many drinks containi ng alcohol do you have on a typical day when you are drinking? 1 or 2 11/25/2023 Q3: How often do you have si x or more drinks on one occasion? Never 11/25/2023 Hunger Vital Sign Answer Date Recorded Within the past 12 months, y ou worried that your food would run out before you got the money to buy more. Never true 05/08/20 23 Within the past 12 months, t he food you bought just didn't last and you didn't have money to get more. Never true 05/08/2023 Personal Safety Answer Date Recorded Have you ever been in or are you currently in a harmful physical or emotional relationship or is someone making you feel afraid or unsafe? Denies 12/05/2023 Comments No Sex and Gender Information Value Date Recorded Sex Assigned at Not on file Legal Sex Female 2:14 AM CORPORATE COMMUNICATIONS ASSOCIATE Gender Identity Not on file Sexual Orientation Not on file Last Filed Vital Signs Vital Sign Reading Time Taken Comments Blood Pressure 128/86 12/29/2023 10:33 AM CDT Pulse 53 12/29/2023 10:33 AM CDT Temperature 36.3 C (97.4 F) 12/29/2023 10:33 AM CDT Respiratory Rate 18 12/05/2023 9:50 AM CDT Oxygen Saturation 99% 12/29/2023 10:33 AM CDT Inhaled Oxygen Concentration - - Weight 53.1 kg (117 lb) 05/26/2024 9:29 AM CORPORATE COMMUNICATIONS ASSOCIATE Height 156.2 cm (5' 1.5 ) 12/29/2023 10:33 AM CD T Body Mass Index 21.75 12/29/2023 10:33 AM CDT Plan of Treatment Not on file Goals Goal Patient Goal Type Associated Problems Recent Progress Patient-Stated? Author CCM Chronic Pain Care Plan Chronic Care Management No change(05/08 9:34 AM CORPORATE COMMUNICATIONS ASSOCIATE) No Marla Luna, RN Note: Problem: Chronic Pain Goals: 1. Minimize further functional decline 2. Maximize quality of life 3. Control pain Strategies: - Activity/exercise program recommendation - Conservative stepwise pain medicine strategy with multi-disciplinary approach - Recommend healthy lifestyle strategies and compensatory methods as needed Medical Devices Implanted Type Area Flight Steward Device Identifier Shelf Expiration Date Model / Serial / Lot Sientra Breast Implant 335cc Implanted:Qty: 1 on 09/11/2021 by Annel Lewis MD at [facility] Breast Left: Breast [employer] 07/05/2026 [id number] / [id number] / Sientra Breast Implant 335cc Implanted:Qty: 1 on 09/11/2021 by Annel Lewis MD at [facility] Breast Right: Breast [employer] Inc 06/19/2026 [id number] [id number] / [id number] / [employer] Od25 Mm Full Wedge Augment Shoulder 15 D Baseplate Glenoid [id number] - [id number] - [id number] Implanted:Qty: 1 on 05/22/2022 by Humza Steele MD at [facility] Other - see comments Right: Shoulder [employer] 02/21/2027 [id number] / [id number] / [employer] Tornier Aequalis Perform 15mm Press Fit Long Post Shoulder Axn481 - [id number] - [id number] Implanted:Qty: 1 on 05/22/2022 by Humza Steele MD at [facility] Other - see comments Right: Shoulder [employer] 12/04/2026 [id number] / [id number] / [employer] Tornier Aequalis Perform 36mm Reverse Shoulder Standard Sphere Gsz182 - [id number] - [id number] Implanted:Qty: 1 on 05/22/2022 by Humza Steele MD at [facility] Other - see comments Right: Shoulder [employer] 02/26/2027 [id number] / [id number] / [employer] Aequalis Perform Reversed 5mm 22mm Peripheral Glenoid Screw Mbn995 - [id number] Implanted:Qty: 2 on 05/22/2022 by Humza Steele MD at [facility] Other - see comments Right: Shoulder [employer] [id number] / / [employer] Aequalis Perform Reversed 5mm 30mm Peripheral Glenoid Screw Wrg506 - [id number] Implanted:Qty: 1 on 05/22/2022 by Humza Steele MD at [facility] Other - see comments Right: Shoulder [employer] GMG697 / / [employer] Stem Perform Sz 2 Humeral Dwx2ss - [id number] - [id number] Implanted:Qty: 1 on 05/22/2022 by Humza Steele MD at [facility] Other - see comments Right: Shoulder [employer] 10/12/2026 [id number] / [id number] / [employer] Insert Perform Ret [id number] [id number] - [id number] - [id number] Implanted:Qty: 1 on 05/22/2022 by Humza Steele MD at [facility] Other - see comments Right: Shoulder [employer] 05/02/2025 [id number] / [id number] / [employer] Latitude 8-15mm Restrictor Elbow Restrictor Cement Ydv827 - [id number] - [id number] Implanted:Qty: 1 on 06/14/2022 by Humza Steele MD at [facility] [employer] [id number] 01/18/2027 [id number] / [id number] / [employer] Simplex P Radiopaque Full Dose Cement Bone Sterile 6191-1-010 - [id number] Implanted:Qty: 1 on 06/14/2022 by Humza Steele MD at [facility] [employer] 10/09/2024 6191-1-01 0 / / [employer] Simplex P Radiopaque Full Dose Cement Bone Sterile 6191-1-010 - [id number] Implanted:Qty: 1 on 06/14/2022 by [facility] 11/08/2024 6191-1-01 0 / / [employer] Stem Perform Sz 1 Plus Humeral Long Dwx1pl - [id number] Implanted:Qty: 1 on 06/14/2022 by Humaz Steele MD at [facility] [employer] 01/17/2027 [id number] / / [employer] [id number] Insert Perform [id number] - [id number] Implanted:Qty: 1 on 06/14/2022 by Humza Steele MD at [facility] [employer] 04/10/2026 [id number] / / Allosource Freeze Dried Chips 1-10mm Graft 15ml Bone Cancellous [id number] - [id number] - [id number] Implanted:Qty: 1 on 04/01/2023 by Amara Pearson MD at [facility] [employer] 08/22/2027 [id number] / [id number] / [id number] Synthes 3.5mm 6mm 150mm 2.5mm Self Tap Low Profile Small Hexagonal Socket 204.750 - [id number] Implanted:Qty: 1 on 04/01/2023 by Amara Pearson MD at [facility] Synthes I 204.750 / / [employer]/ Ortho Evos Mini 71mm 3 Hole Head 9 Hole Shaft Low Profile Variable [id number] - [id number] Implanted:Qty: 1 on 04/01/2023 by Amara Pearson MD at [facility] [employer]/ Ortho [id number] / / [employer]/ Ortho 2.7mm 4.5mm 28mm Self Tap Cortex T8 2mm Screw Bone Evos [id number] - [id number] Implanted:Qty: 1 on 04/01/2023 by Amara Pearson MD at [facility] [employer]/ Ortho [id number] / / [employer]/ Ortho Evos Mini 2.7mm 4.5mm 38mm Self Tap Cortex T8 Screw Bone Sterile [id number] - [id number] Implanted:Qty: 1 on 04/01/2023 by Amara Pearson MD at [facility] [employer]/ Ortho [id number] / / [employer]/ Ortho Evos 2.7mm 4.5mm 18mm Self Tap Cortex T8 Screw Bone Nonsterile [id number] - [id number] Implanted:Qty: 1 on 04/01/2023 by Amara Pearson MD at [facility] [employer]/ Ortho [id number] / / Procedures Procedure Name Priority Date/Time Associated Diagnosis Comments DEXA AXIAL SKELETON BONE DENSITY 1 OR MORE SITES Schedule Routine, Read Routine (OP Routine) 06/18/2024 2:39 PM CORPORATE COMMUNICATIONS ASSOCIATE Postmenopause VITAMIN B12 Routine 05/26/2024 9:59 AM CORPORATE COMMUNICATIONS ASSOCIATE Vitamin B12 deficiency T4, FREE Routine 05/26/2024 9:59 AM CORPORATE COMMUNICATIONS ASSOCIATE Hypothyroidism determined by thyroid function test TSH Routine 05/26/2024 9:59 AM CORPORATE COMMUNICATIONS ASSOCIATE Hypothyroidism determined by thyroid function test COMPREHENSIVE METABOLIC PANEL Routine 05/26/2024 9:59 AM CORPORATE COMMUNICATIONS ASSOCIATE Alcoholism (CMS/HCC) (HCC) CBC WITH AUTO DIFFERENTIAL Routine 05/26/2024 9:59 AM CORPORATE COMMUNICATIONS ASSOCIATE Alcoholism (CMS/HCC) (HCC) SCREENING MAMMOGRAM 2D BILATERAL Routine 08/05/2013 3:09 PM CDT from Last 3 Months or Most Recently Relevant to Health Maintenance Results * Dexa Axial Skeleton Bone Density 1 or 2 Site (06/18/2024 2:39 PM CORPORATE COMMUNICATIONS ASSOCIATE) Anatomical Region Laterality Modality Body N/A Radiographic Martina ging Narrative 06/19/2024 4:40 PM CORPORATE COMMUNICATIONS ASSOCIATE Patient Name: Ann Mcintosh Date of : 1955 Date of scan: 06/18/2024 Bone mineral density was performed on a HoloFilm Fresh Discovery Densitometer. Based on machine cross-calibration and precision studies the least significant changes of this densitometer is 0.024 g/cm2 at the spine, 0.020 g/cm2 at the total proximal femur, and 0.014g/cm2 at the forearm. HISTORY: This is a 69 y.o. postmenopausal female with a history of thyroid disease and vitamin D deficiency. She reports that she has never smoked. She has never used smokeless tobacco. Currently on treatment with calcium and thyroid hormone. INDICATIONS: Menopause status and vitamin D deficiency. FINDINGS: BONE MINERAL DENSITY OF THE LUMBAR SPINE Bone Mineral Density (BMD) of the lumbar spine was measured from L1-L4 and the average density was calculated to be 1.320 gm/cm2. This corresponds to a T-score (standard deviations from the mean of young adults) of 2.5. There is no previous study available for comparison. BONE MINERAL DENSITY OF THE PROXIMAL FEMUR Bone Mineral Density (BMD) of the left hip total was found to be 0.978 gm/cm2. This corresponds to a T-score standard deviations from the mean of young adults of 0.3. Femoral neck is 0.723 gm/cm2 with a T-score (standard deviations from the mean of young adults) of -1.1. There is no previous study available for comparison. SUMMARY: Bone mineral density shows evidence of low bone mass at the proximal femur and moderately increased fracture risk (Osteopenia). ADDITIONAL COMMENTS: Postmenopausal Women and Men Over 50: Diagnostic criteria: Osteoporosis: BMD at or below -2.5 T-score; Osteopenia (low bone mass): BMD between -1.0 and -2.5 T-score. If the patient has a history of a fragility fracture, a fracture that occurred with trauma equivalent to a fall from a standing position or less, then the diagnosis is osteoporosis regardless of bone density. The history and data sections of the bone mineral density scan were prepared by Janine Geronimo) MEAGAN who is accredited by the International Society of Clinical Densitometry. The overall patient assessment and scan interpretation were performed by Iam Alarcon M.D. who is certified by the International Society of Clinical Densitometry. [id number] Ember Sahni MD [facility] DXA PROCEDURES Final Result * (ABNORMAL) CBC with auto differential (05/26/2024 9:59 AM CORPORATE COMMUNICATIONS ASSOCIATE) WBC 8.7 3.8 - 10.8 Thousand/u L [facility] RBC, POC 3.90 3.80 - 5.10 Million/uL [facility] Hgb 13.2 11.7 - 15.5 g/dL [facility] Hct 38.9 35.0 - 45.0 % [facility] MCV 99.7 80.0 - 100.0 fL [facility] MCH 33.8(H) 27.0 - 33.0 pg [facility] MCHC 33.9 32.0 - 36.0 g/dL [facility] Comment: For adults, a slight decrease in the calculated MCHC value (in the range of 30 to 32 g/dL) is most likely not clinically significant; however, it should be interpreted with caution in correlation with other red cell parameters and the patient's clinical condition. Rdw 11.2 11.0 - 15.0 % [facility] Platelets 406(H) 140 - 400 Thousand/u L [facility] MPV 9.3 7.5 - 12.5 fL [facility] Neutrophils, abs 5,916 1,500 - 7,800 cells/uL [facility] Lymphocytes, abs 1,740 850 - 3,900 cells/uL [facility] Monocyte abs 870 200 - 950 cells/uL [facility] Eosinophils, abs 131 15 - 500 cells/uL [facility] Basophils, abs 44 0 - 200 cells/uL [facility] Neutrophils 68 % [facility] Lymphocyte pct 20.0 % [facility] Monocytes 10.0 % [facility] Eosinophils 1.5 % [facility] Basophils 0.5 % [facility] Blood 05/26/2024 9:59 AM CORPORATE COMMUNICATIONS ASSOCIATE 05/26/2024 9:59 AM CORPORATE COMMUNICATIONS ASSOCIATE Ember Sahni MD LAB BLOOD ORDERABLES Fin al Result Performing Organization Address [facility] de Phone Number QUEST [facility] [address] [place] [address] * TSH (05/26/2024 9:59 AM CORPORATE COMMUNICATIONS ASSOCIATE) TSH 1.97 0.40 - 4.50 mIU/L [facility] Blood 05/26/2024 9:59 AM CORPORATE COMMUNICATIONS ASSOCIATE 05/26/2024 9:59 AM CORPORATE COMMUNICATIONS ASSOCIATE Result [facility] Ember Sahni MD LAB BLOOD ORDERABLES Fin al Result Performing Organization Address [facility] de Phone Number [facility] [address] [place] [address] * T4, free (05/26/2024 9:59 AM CORPORATE COMMUNICATIONS ASSOCIATE) Free T4 1.4 0.8 - 1.8 ng/dL [facility] Blood 05/26/2024 9:59 AM CORPORATE COMMUNICATIONS ASSOCIATE 05/26/2024 9:59 AM CORPORATE COMMUNICATIONS ASSOCIATE Ember Sahni MD LAB BLOOD ORDERABLES Fin al Result Performing Organization Address [facility] de Phone Number [facility] [place] [address] [place] [address] * Vitamin B12 (05/26/2024 9:59 AM CORPORATE COMMUNICATIONS ASSOCIATE) [facility] Vitamin B12 312 200 - 1,100 pg/mL [facility] Comment: Please Note: Although the reference range for vitamin B12 is 200-1100 pg/mL, it has been reported that between 5 and 10% of patients with values between 200 and 400 pg/mL may experience neuropsychiatric and hematologic abnormalities due to occult B12 deficiency; less than 1% of patients with values above 400 pg/mL will have symptoms. Blood 05/26/2024 9:59 AM CORPORATE COMMUNICATIONS ASSOCIATE 05/26/2024 9:59 AM CORPORATE COMMUNICATIONS ASSOCIATE us Ember Sahni MD LAB BLOOD ORDERABLES Fin al Result Performing Organization Address [facility] de Phone Number [facility] [address] [place] [address] * Comprehensive metabolic panel (05/26/2024 9:59 AM CORPORATE COMMUNICATIONS ASSOCIATE) [facility] Glucose 86 65 - 99 mg/dL [facility] Comment: Fasting reference interval BUN 23 7 - 25 mg/dL [facility] Creatinine 0.92 0.60 - 1.00 mg/dL [facility] eGFR 67 > OR = 60 mL/min/1.7 3m2 [facility] BUN/creat ratio SEE NOTE: 6 - 22 (calc) [facility] Comment: Not Reported: BUN and Creatinine are within reference range. Sodium 137 135 - 146 mmol/L [facility] Potassium, pl 4.5 3.5 - 5.3 mmol/L [facility] Chloride 99 98 - 110 mmol/L [facility] CO2 27 20 - 32 mmol/L [facility] Calcium 9.7 8.6 - 10.4 mg/dL [facility] Protein, sr 6.9 6.1 - 8.1 g/dL [facility] Albumin 4.7 3.6 - 5.1 g/dL [facility] GLOBULIN 2.2 1.9 - 3.7 g/dL (calc) [facility] Alb/glob ratio 2.1 1.0 - 2.5 (calc) [facility] Bilirubin, total 0.3 0.2 - 1.2 mg/dL [facility] Alk phos 42 37 - 153 U/L [facility] AST 18 10 - 35 U/L [facility] ALT (SGPT) 10 6 - 29 U/L [facility] Blood 05/26/2024 9:59 AM CORPORATE COMMUNICATIONS ASSOCIATE 05/26/2024 9:59 AM CORPORATE COMMUNICATIONS ASSOCIATE us Ember Sahni MD LAB BLOOD ORDERABLES Fin al Result [facility] [address] [place] [address] * Screening Mammogram 2D Bilateral (08/05/2013 3:09 PM CDT) Anatomical Region Laterality Modality Breast Bilateral Mammography 08/05/2013 3:09 PM CDT Impressions 08/06/2013 7:37 AM CDT 1. A left axillary lymph node appears prominent. Recommend additional imaging. The patient will be contacted at this time to arrange for additional views. 2. No mammographic evidence of malignancy in the right breast. Recommend routine screening mammography in one year. ASSESSMENT: BIRADS: 0 - Incomplete assessment THIS IS AN ELECTRONICALLY VERIFIED REPORT 08/06/2013 7:34 AM: Adela Almonte M.D. Adela Almonte M.D. KL:td 07:34 AM 07:34 AM [facility] [EOD] Narrative 08/06/2013 7:37 AM CDT EXAMINATION: BILATERAL SCREENING MAMMOGRAPHY HISTORY: Routine screening mammography. No significant family history of breast cancer or prior breast biopsies. COMPARISON: Prior mammograms including 07/29/12, 09/07/11 and 07/02/10. TECHNIQUE: Bilateral digital full field of view mammography was performed, with the aid of computer aided detection (CAD). FINDINGS: The breasts are composed of scattered fatty and fibroglandular tissues. No suspicious masses or microcalcifications are seen in the right breast. A left axillary lymph node appears prominent. Recommend additional imaging. Procedure Note Provider, MD Rajendra - 09/27/2020 EXAMINATION: BILATERAL SCREENING MAMMOGRAPHY HISTORY: Routine screening mammography. No significant family history of breast cancer or prior breast biopsies. COMPARISON: Prior mammograms including 07/29/12, 09/07/11 and 07/02/10. TECHNIQUE: Bilateral digital full field of view mammography wasperformed, with the aid of computer aided detection (CAD). FINDINGS: The breasts are composed of scattered fatty and fibroglandular tissues. No suspicious masses or microcalcifications are seen in theright breast. A left axillary lymph node appears prominent. Recommend additionalimaging. IMPRESSION: 1. A left axillary lymph node appears prominent. Recommend additional imaging. The patient will be contacted at this time to arrange foradditional views. 2. No mammographic evidence of malignancy in the right breast. Recommend routine screening mammography in one year. ASSESSMENT: BIRADS: 0 - Incomplete assessment THIS IS AN ELECTRONICALLY VERIFIED REPORT 08/06/2013 7:34 AM: Adela Almonte M.D. Adela Almonte M.D. KL:td 07:34 AM 07:34 AM [facility] [EOD] Alva Fraser MD IMG MAMMO PROCEDURES Final Resu lt from Last 3 Months or Most Recently Relevant to Health Maintenance Insurance [facility] CHO[facility] PLUS [employer] CHOICE MEDICARE PPO [employer] CHO[employer] MEDICARE PPO [employer] CHOICE MEDICARE PPO [employer] CHOICE MEDICARE PPO Advance Directives For more information, please contact: [phone] Documents on File Type Date Recorded Patient Activities Counselor Expl anation ADVANCE DIRECTIVE 05/22/2022 6:11 AM Lacyin glen Will Advance Directives and Livin g Will 09/11/2021 8:19 AM * Full Code (Latest Code Status on File) Date Activated Date Inactivated Comments 06/14/2022 1:56 PM 06/15/2022 4:06 PM * Full Code Date Activated Date Inactivated Comments 05/22/2022 12:40 PM 05/23/2022 5:14 PM Care Teams Reinsurance Clerk Relationship Specialty Start Date End Date Ember Sahni MD [address] [address] PCP - General Internal Medicine 02/11/19
--- OUTSIDE RECORDS SUMMARY | 2024-07-06 18:41 | XMS_ITS ---
Author Organization [facility] [employer] Address [address] [facility] [address] [place] [address] Care Team Providers Care Retail Account Specialist Name Role Phone Hayley Davis Unavailable [phone] Allergies No Known Allergies REASON FOR VISIT MIPS Pre hypertension, Depression screening positive Medications Medication SIG (Take, Route, Frequency, Duration) Notes Start Date End Date Status Trintellix 20 MG 1 tablet Oral Once a day for 90 days do not fill until pt requests Active buPROPion HCl ER (XL) 150 MG 1 tablet every morning Orally Once a day for 90 days take together with 300 mg tab for total daily dose of 450 mg each morning Active ARIPiprazole 5 MG 1 tablet Orally Once a day for 90 days Active traZODone HCl 100 MG 1 tablet Oral Once a day for 90 days do not fill until pt requests Active LORazepam 0.5 MG Oral 09/10/2023 Ac tive valACYclovir HCl 1 GM Oral 09/10/2023 Active buPROPion HCl ER (XL) 300 MG 1 tablet every morning Oral Once a day for 90 days take together with 150 mg tab for total daily dose of 450 mg each morning Active LORATADINE-D 5-120 mg Oral *Reorder f sander [facility] for eRx and Interaction Alerts* 09/10/2023 Active Levothyroxine Sodium 88 MCG Oral alternates 100 mcg qod and 88 mcg qod 09/10/2023 Active Benzonatate 200 MG Oral 09/10/2023 Active Betamethasone Dipropionate 0.05 % External 09/10/2023 Active Levothyroxine Sodium 100 MCG Oral alternates 100 mcg qod and 88 mcg qod 09/10/2023 Active Social History Sex Assigned At : Social History Observation Description Sex Assigned At Female Vital Signs Blood pressure systolic 135 mm Hg 05/28/19 25 Blood pressure diastolic 85 mm Hg 025 Heart Rate 82 /min 05/28/2024 Height 62.00 in 05/28/2024 Weight 117.6 lbs 05/28/2024 BMI 21.51 kg/m2 05/28/2024 Height-cm 157.48 cm 05/28/2024 Weight-kg 53.34 kg 05/28/2024 135/80 Encounters Encounter [facility] Date [facility] [address] [place] [address] 05/28/2024 Hayley Davis Bipolar disorder, current episode depressed, mild F31.31 Assessments Encounter Date Diagnosis (ICD Code) Assessment Notes Treatment Notes Treatment Clinical Notes Section Notes 05/28/2024 Bipolar disorder, current episode depressed, mild (ICD-10 - F31.31) Plan Of Treatment Next Appt Details Follow Up: 6 Weeks, Reason: Provider Name:Lala Alonso , 07/22/2024 11:15:00 AM, [address], [address], [place], [address], Progress Notes * YAKOV EASTDOB:[birth year] (69 yo F)Acc No.[id number]:05/28/2024 Patient: ALEJANDRO CANASDA Provider: Gela DAVIS MD :1955 A ge:69 Y S ex:Female Date:05/28/2024 Address:[address] [place], [place] [id number] Subjective: * Chief Complaints: * 1 . MIPS Pre hypertension. 2. Depression screening positive. * HPI: D epression Screening: SHIVA-7 (2018 Edition) F eeling nervous, anxious, or on edge?Several days, N ot being able to stop or control worrying S everal days, W orrying too much about different things S everal days, T rouble relaxing N ot at all, B eing so restless that it is hard to sit still N ot at all, B ecoming easily annoyed or irritable?Several days, F eeling afraid as if something awful might happen N ot at all, T otal SHIVA-7 Score 4 , I nterpretation of Total ( 0 to 4) No Anxiety. D epression screening: PHQ-9 L ittle interest or pleasure in doing things S everal days, F eeling down, depressed, or hopeless N ot at all, T rouble falling or staying asleep, or sleeping too much S everal days, F eeling tired or having little energy S everal days, P oor appetite or overeating S everal , F eeling bad about yourself or that you are a failure, or have let yourself or your family down N ot at all, T rouble concentrating on things, such as reading the newspaper or watching television S ever, M oving or speaking so slowly that other people could have noticed; or the opposite, being so fidgety or restless that you have been moving around a lot more than usual N ot at all, T houghts that you would be better off or of hurting yourself in some way N ot at all, T otal Score 5, I nterpretation M ild Depression. I ntervention D epression Screening Findings?Positve, F ollow-Up for Depression [facility] treatment assessment, Patient follow-up to return when and if necessary, A dditional Evaluation for Depression P sychiatric interview and evaluation, N debbie of the standardized tool used for adult depression screening: [facility] (PHQ-[facility]). F unctional Status: followed-up with PCP, B12 level low, is now taking oral supplement, and PCP will f/u on that explains some of her fatigue, depression, cognitive difficulties 74 yo brother is in the hospital, has been having repeated strokes, pt and her other brother will be traveling to [place] this weekend to visit with him, discussed having gone to [place] to see a cousin who years ago;. * Medical History: Kellen magana: Alcohol dependence, Bipolar affective disorder, current episode depression, Body mass index 25-29 - overweight, Essential hypertension, Generalized anxiety disorder, Hypothyroidism, Posttraumatic stress disorder, Primary insomnia, Severe alcohol dependence, ,. * Medications: T aking Benzonatate 200 MG Capsule Oral , Taking Levothyroxine Sodium 100 MCG Tablet Oral , Notes to Pharmacist: alternates 100 mcg qod and 88 mcg qod, Taking Betamethasone Dipropionate 0.05 % Cream External , Taking Levothyroxine Sodium 88 MCG Tablet Oral , Notes to Pharmacist: alternates 100 mcg qod and 88 mcg qod, Taking LORATADINE-D 5-120 mg Tablet Extended Release 12 Hour Oral , Notes to Pharmacist: *Reorder from [facility] for eRx and Interaction Alerts*, Taking valACYclovir HCl 1 GM Tablet Oral , Taking LORazepam 0.5 MG Tablet Oral , Taking buPROPion HCl ER (XL) 300 MG Tablet Extended Release 24 Hour 1 tablet every morning Oral Once a day take together with 150 mg tab for total daily dose of 450 mg each morning, Taking buPROPion HCl ER (XL) 150 MG Tablet Extended Release 24 Hour 1 tablet every morning Orally Once a day take together with 300 mg tab for total daily dose of 450 mg each morning, Taking Trintellix 20 MG Tablet 1 tablet Oral Once a day , Notes to Pharmacist: do not fill until pt requests, Taking traZODone HCl 100 MG Tablet 1 tablet Oral Once a day , Notes to Pharmacist: do not fill until pt requests, Taking ARIPiprazole 5 MG Tablet 1 tablet Orally Once a day , Discontinued Flovent HFA 110 MCG/ACT Aerosol Inhalation , Medication List reviewed and reconciled with the patient * Allergies: N .K.D.A. Objective: * Vitals: B P:135/85mm Hg, HR:82/min, Wt:117.6lbs, Wt-k.34 kg, Ht: 62.00 in, Ht-cm: 157.48 cm, BMI:21.51Index, Body Surface Area: 1.53. 135/80. * Examination: P sychiatry: Appearance: w ell-groomed, well-nourished, .... Affect / mood: a ppropriate, full range. Attention: g ood. Attitude: c ooperative. Suicidal ideation: n one. Memory status: n o impairment noted. Degree of awareness of surroundings: w ithin normal limits.? Delusions: n o. Hallucinations: n o. Insight: g ood. Intellectual functioning: n o impairment noted. Judgement: g ood. Orientation: a wake, alert and oriented x 3. Perceptual disorders: n o perceptual disorder noted. Psychomotor activity: w ithin normal range. Speech / language: a ppropriate pitch/modulation, clear and coherent, normal rate, volume, and articulation (RVR), proper grammar used. Thought content: a ppropriate. Thought process: i ntact. Assessment: * Assessment: 1. B ipolar disorder, current episode depressed, mild - F31.31 (Primary) Plan: * Treatment: * Procedure Codes: 9 6127 BEHAV ASSMT W/SCORE & DOCD/STAND INSTRUMENT * Preventive Medicine: Counseling: B P Management: P RE-HYPERTENSIVE FOLLOW-UP PLAN: F ollow-up 2 weeks ____, L IFESTYLE RECOMMENDATION: L ifestyle education Recommended Nonpharmacologic Interventions (Lifestyle Modifications) -Weight ReductionA heart-healthy diet , such as Dietary Approaches to Stop Hypertension (DASH) Eating PlanDietary Sodium RestrictionIncreased Physical ActivityModeration in alcohol consumption, R EFERRAL TO ALTERNATIVE / PRIMARY CARE PROVIDER: R eferral to general physician . * Follow Up: 6 Weeks * Billing Information: * Visit Code: * Procedure Codes: 60791 BEHAV ASSMT W/SCORE & DOCD/STAND INSTRUMENT. * Electronic signature of Jesus Davis MD on 07/06/2024 at 06:41 PM RN MATERNAL CHILD Sign off status: Pending * Provider: Gela DAVIS MD Date: 0 05/28/2024 Generated for Carmen chaves/Trisha/Lizitting on: 0 07/06/2024 06:41 PM RN MATERNAL CHILD History and Physical Notes * HPI (History of Present Illness) Category Sub-Category Detail Notes Category Not es Depression screening PHQ-9 Little inte rest or pleasure in doing things: Several days Feeling down, depressed, or hopeless: No t at all Trouble falling or staying asleep, or sl eeping too much: Several days Feeling tired or having little energy: S everal days Poor appetite or overeating: Several day s Feeling bad about yourself o r that you are a failure, or have let yourself or your family down: Not at all Trouble concentrating on thi ngs, such as reading the newspaper or watching television: Several days Moving or speaking so slowly that other people could have noticed; or the opposite, being so fidgety or restless that you have been moving around a lot more than usual: Not at all Thoughts that you would be b alfredo off or of hurting yourself in some way: Not at all Total Score: 5 Interpretation: Mild Depression Intervention Depression Screening Findings: P ositve Follow-Up for Depression: [facility] treatment assessment, Patient follow-up to return when and if necessary Additional Evaluation for Depression: Ps ychiatric interview and evaluation Name of the standardized too l used for adult depression screening:: Patient Health Questionnaire (PHQ-9) Functional Status followed-up with PCP, B12 level low, is now taking oral supplement, and PCP will f/u on that explains some of her fatigue, depression, cognitive difficulties 74 yo brother is in the hospital, has been having repeated strokes, pt and her other brother will be traveling to [place] this weekend to visit with him, discussed having gone to [place] to see a cousin who years ago; Depression Screening SHIVA-7 (2018 Edition) Feeling nervous, anxious, or on edge: Several days Not being able to stop or control worryi ng: Several days Worrying too much about different things : Several days Trouble relaxing: Not at all Being so restless that it is hard to sit still: Not at all Becoming easily annoyed or irritable: Se veral days Feeling afraid as if something awful shaina ht happen: Not at all Total SHIVA-7 Score: 4 Interpretation of Total: (0 to 4) No Anx iety Examination Category Sub-Category Detail Notes Category Not es Psychiatry Appearance: well-groomed, well-nourished , ... Attitude: cooperative Psychomotor activity: within normal rang e Attention: good Degree of awareness of surroundings: wit hin normal limits Orientation: awake, alert and naren ented x 3 Affect / mood: appropriate, full ra nge Speech / language: appropriate pitch/mo dulation, clear and coherent, normal rate, volume, and articulation (RVR), proper grammar used Insight: good Judgement: good Thought process: intact Thought content: appropriate Perceptual disorders: no perceptual diso rder noted Suicidal ideation: none Intellectual functioning: no impairment noted Memory status: no impairment noted Delusions: no Hallucinations: no
--- OUTSIDE RECORDS SUMMARY | 2024-07-06 18:41 | XMS_ITS | Clinical Summary ---
Author Organization [facility] Address [address] [place] [id number] Care Team Providers Care Ballroom Dancer Name Role Phone Unavailable Primary Care Provider Unavailabl e Social History Tobacco Use Types Packs/Day Years Used Date Smoking Tobacco: Never Assessed Comments Unknown Sex and Gender Information Value Date Recorded Sex Assigned at Not on file Legal Sex Female 4:46 PM CDT Gender Identity Not on file Sexual Orientation Not on file Plan of Treatment Health Maintenance Due Date Last Done Comments Colorectal Cancer Screening Colonoscopy (10 Years) 1954 Hepatitis C 1972 DTaP, Tdap and Td Vaccines ( 1 - Tdap) 1973 Mammogram Screening 1994 Zoster Vaccines (1 of 2) 2004 Dexa Scan (General) 2019 Pneumococcal Vaccine: 65+ Ye ars (1 of 1 - PCV) 2019 COVID-19 Vaccine (2023-2 5 season) 2024 Influenza Adult (#1) 2024 RSV Immunization or 60+ Years (1 - 1-dose 75+ series) 2029 Meningococcal B Vaccine Aged Out No l onger eligible based on patient's age to complete this topic Meningococcal Vaccine Aged Out No lavern maria de jesus eligible based on patient's age to complete this topic RSV Immunizations Under 20 Months Aged Out No longer eligible based on patient's age to complete this topic Advance Directives Documents on File Type Date Recorded Patient Official Greeter Expl anation Advance Directives and Living Will 10/20/2018 12:00 AM ADVANCED DIRECTIVES Advance Directives and Living Will 10/16/2018 12:00 AM ADVANCED DIRECTIVES
--- OUTSIDE RECORDS SUMMARY | 2024-07-06 18:41 | XMS_ITS | Clinical Summary ---
Author Organization [facility] Address [address] [place] [address] Care Team Providers Care Clinical Trial Specialist Name Role Phone Ember Sahni MD Primary Care Provider + Allergies Active Allergy Reactions Criticality Noted Date [...] a day 180 tablet 3 5 05/21/19 Active buPROPion XL (WELLBUTRIN XL) 150 mg [...] (06/06/2022): Added automatically from request for surgery [id number] S/P reverse total shoulder arthroplasty, right 0 05/22/2022 Glenohumeral arthritis, right 05/22/2022 Ptosis of breast 12/19/2021 Overview (12/19/2021): Added automatically from request for surgery [id number] Vitamin B12 deficiency 09/13/2020 Physical exam 09/13/2020 [...] st 02/24/2018 Elevated liver enzymes 10/23/2017 Alcoholism (CMS/HCC) 10/17/2017 Avascular necrosis of left femur 07/21/2017 Bipolar 2 disorder (CMS/HCC) 07/21/2017 Hyperlipidemia 07/21/2017 Hypertensive disorder 07/21/2017 Contracture of joint of right foot 09/26/2016 Hallux valgus of left foot 09/26/2016 Pain in left foot 09/26/2016 Stress fracture of left foot with routine healin g 09/26/2016 Abnormal mammogram 08/27/2013 Hypothyroidism Bipolar 1 disorder Alcohol use disorder, severe , in early remission, dependence Encounters Date Type Department Care Team Description 07/06/2024 Telephone [facility] [address] [place] [address] 5th [place] [address] Mary Hurtado 06/18/2024 2:50 PM RURAL MAIL CONTRACTOR Clinical Support [address] 5th [place] [address] Osteopenia of left hip (Primary Dx); Postmenopause 05/28/2024 [facility] [address] [place] [address] [place] [address] Ember Jimenez MBA Info 05/26/2024 10:00 AM RURAL MAIL CONTRACTOR Office Visit [facility] [address] [place] [address] [place] [address] Ember Sahni MD Hypothyroidism determined by thyroid function test (Primary Dx); Hypothyroidism, unspecified type; Alcoholism (CMS/HCC) ([facility]); Vitamin B12 deficiency 05/21/2024 [facility] 5th [place] [address] Ember Jimenez MBA Medication correction 05/03/2024 [facility] [address] [place] [address] Mary Hurtado 04/30/2024 Orders Only [facility] [address] [place] [address] 5th [place] [address] Ember Sahni MD Postmenopause (Primary Dx) 04/30/2024 [facility] [address] [place] [address] [place] [address] Ember Jimenez MBA Discuss her visit with Ann from Last 3 Months Immunizations Immunization Administration Dates Next Due Hep [...] 03/14/2020,10/24/2008,05/12/2008 ZOSTER LIVE 03/12/2016 ZOSTER Recombinant 03/21/2018,08/12/2017 Surgical History Surgery Date Site/Laterality Comments [place] DELIVERY ONLY 05/12/1990 - 05/11/1991 Section - (Added by TW Conv) REPLACEMENT TOTAL KNEE 11/06/2017 Left ABDOMINOPLASTY 09/11/2021 BUNIONECTOMY 11/22/2016 AUGMENTATION MAMMOPLASTY 09/11/2021 Bilateral SHOULDER ARTHROPLASTY 05/22/2022 Right REVISION OF TOTAL SHOULDER 06/14/2022 Right ELBOW SURGERY 03/12/2023 Right plate and screws in place to repair fracture CATARACT EXTRACTION Medical History Medical History Date Comments Hypothyroidism Bipolar 1 disorder (HCC) Alcohol use disorder, severe, in early remission , dependence (HCC) H/O joint replacement Arthritis Depression Anxiety Neck pain Right arm pain Right hip pain Right leg pain Ear ringing Hearing difficulty Muscle pain Bruises easily Headache Irritability Thyroid disease Left hip pain Vertigo Hammer toe Bunion, right foot Family History Medical History Relation Name Comments Melanoma Father Lung cancer Mother Anesthesia problems Neg Hx Relation Name Status Comments Father Mother Social History Tobacco Use Types Packs/Day Years [...] on file Legal Sex Female 2:14 AM RURAL MAIL CONTRACTOR Gender Identity Not on file Sexual Orientation Not on file Obstetrics History Last Filed Vital Signs Vital Sign Reading Time Taken Comments Blood Pressure 128/86 12/29/2023 10:33 AM CDT Pulse 53 12/29/2023 10:33 AM CDT Temperature 36.3 C (97.4 F) 12/29/2023 10:33 AM CDT Respiratory Rate 18 12/05/2023 9:50 AM CDT Oxygen Saturation 99% 12/29/2023 10:33 AM CDT Inhaled Oxygen Concentration - - Weight 53.1 kg (117 lb) 05/26/2024 9:29 AM RURAL MAIL CONTRACTOR Height 156.2 cm (5' 1.5 ) 12/29/2023 10:33 AM CD T Body Mass Index 21.75 12/29/2023 10:33 AM CDT Plan of Treatment Health Maintenance Due Date Last Done Comments Colon Cancer Screening-Colonoscopy 1955 Depression Screening 1955 Hepatitis C Screening 1955 Hepatitis B Screening 1972 Breast Cancer Screening-Mammogram 08/05/2014 08/05/2013, 08/05/2013, 07/29/2012, Additional history exists Well Visit 65+ 2019 Pneumococcal vaccine 65+ (2 of 2 - PPSV23) 05/10/2020 03/15/2020 Covid-19 Vaccine (2023-2 5 season) 2024 02/12/2022, 11/21/2021, 02/05/2021, Additional history exists Influenza Vaccine (#1) 2024 , 02/19/2021, 02/04/2020, Additional history exists Fall Risk Assessment 12/04/2024 12/05/2023 Osteoporosis Screening-Bone Density Scan 06/18/2026 06/18/2024, 12/26/2015 DTaP/Tdap/Td Vaccine (4 - Td or Tdap) 03/14/2030 03/14/2020, 10/24/2008, 05/12/2008 Zoster Vaccine Completed 03/21/2018, 07/2017, 03/12/2016 Goals Goal Patient Goal Type Associated Problems Recent Progress Patient-Stated? Author CCM Chronic Pain Care Plan Chronic Care Management No change(05/08 9:34 AM RURAL MAIL CONTRACTOR) No Marla Luna, RN Note: Problem: Chronic Pain Goals: 1. Minimize further functional decline 2. Maximize quality of life 3. Control pain Strategies: - Activity/exercise program recommendation - Conservative stepwise pain medicine strategy with multi-disciplinary approach - Recommend healthy lifestyle strategies and compensatory methods as needed Medical Devices Implanted Type Area Charging Car Operator Device Identifier Shelf Expiration Date Model / Serial / Lot Sientra Breast Implant 335cc Implanted:Qty: 1 on 09/11/2021 by Annel Lewis MD at [facility] Breast Left: Breast Sientra Inc 07/05/2026 [id number] [id number] / [id number] / Sientra Breast Implant 335cc Implanted:Qty: 1 on 09/11/2021 by Annel Lewis MD at [facility] Breast Right: Breast Sientra Inc 06/19/2026 [id number] 335MP / [id number] / Project 2020 Inc Od25 Mm Full Wedge Augment Shoulder 15 D Baseplate Glenoid [id number] - [id number] - [id number] Implanted:Qty: 1 on 05/22/2022 by Humza Steele MD at [facility] Other - see comments Right: Shoulder Project 2020 Inc 02/21/2027 [id number] / [id number] / [employer] Tornier Aequalis Perform 15mm Press Fit Long Post Shoulder Hqa897 - [id number] - [id number] Implanted:Qty: 1 on 05/22/2022 by Humza Steele MD at [facility] Other - see comments Right: Shoulder [employer] 12/04/2026 [id number] / [id number] / [employer] Tornier Aequalis Perform 36mm Reverse Shoulder Standard Sphere Btd081 - [id number] - [id number] Implanted:Qty: 1 on 05/22/2022 by Humza Steele MD at [facility] Other - see comments Right: Shoulder [employer] 02/26/2027 [id number] / [id number] / [employer] Aequalis Perform Reversed 5mm 22mm Peripheral Glenoid Screw Euh609 - [id number] Implanted:Qty: 2 on 05/22/2022 by Humza Steele MD at [facility] Other - see comments Right: Shoulder [employer] [id number] / / [employer] Aequalis Perform Reversed 5mm 30mm Peripheral Glenoid Screw Hjq846 - [id number] Implanted:Qty: 1 on 05/22/2022 by Humza Steele MD at [facility] Other - see comments Right: Shoulder [employer] [id number] / / [employer] Stem Perform Sz 2 Humeral Dwx2ss - [id number] - [id number] Implanted:Qty: 1 on 05/22/2022 by Humza Steele MD at [facility] Other - see comments Right: Shoulder [employer] 10/12/2026 DWX2SS / [id number] / [employer] Insert Perform Ret Phz5899 Dsi5154 - [id number] - [id number] Implanted:Qty: 1 on 05/22/2022 by Humza Steele MD at [facility] Other - see comments Right: Shoulder [employer] 05/02/2025 [id number] / [id number] / [employer] Latitude 8-15mm Restrictor Elbow Restrictor Cement Pwa131 - [id number] - [id number] Implanted:Qty: 1 on 06/14/2022 by Humza Steele MD at [facility] [employer] [id number] 01/18/2027 [id number] / [id number] / [employer] Simplex P Radiopaque Full Dose Cement Bone Sterile 6191-1-010 - [id number] Implanted:Qty: 1 on 06/14/2022 by Humza Steele MD at [facility] [employer] 10/09/2024 6191-1-01 0 / / [place] [employer] Simplex P Radiopaque Full Dose Cement Bone Sterile 6191-1-010 - [id number] Implanted:Qty: 1 on 06/14/20[facility] 11/08/2024 6191--01 0 / / [employer] Inc Stem Perform Sz 1 Plus Humeral Long Dwx1pl - [id number] Implanted:Qty: 1 on 06/14/2022 by Humza Steele MD at [facility] [employer] Inc 01/17/2027 [id number] / / [employer] Inc [id number] Insert Perform Dss9647 - [id number] Implanted:Qty: 1 on 06/14/2022 by Humza Steele MD at [facility] [employer] Inc 04/10/2026 [id number] / / Allosource Freeze Dried Chips 1-10mm Graft 15ml Bone Cancellous [id number] - [id number] - [id number] Implanted:Qty: 1 on 04/01/2023 by Amara Pearson MD at [facility] All[employer]ource 08/22/2027 [id number] / [id number] / [id number] Synthes 3.5mm 6mm 150mm 2.5mm Self Tap Low Profile Small Hexagonal Socket 204.750 - [id number] Implanted:Qty: 1 on 04/01/2023 by Amara Pearson MD at [facility] Synthes I 204.750 / / [employer]/ Ortho Evos Mini 71mm 3 Hole Head 9 Hole Shaft Low Profile Variable [id number] - [id number] Implanted:Qty: 1 on 04/01/2023 by Amara Pearson MD at [facility] [employer]/ Ortho [id number] / / [employer]/ Ortho 2.7mm 4.5mm 28mm Self Tap Cortex T8 2mm Screw Bone Evos [id number] - [id number] Implanted:Qty: 1 on 04/01/2023 by Amara Pearson MD at [facility] [employer]/ Ortho [id number] / / [employer]/ Ortho Evos Mini 2.7mm 4.5mm 38mm Self Tap Cortex T8 Screw Bone Sterile [id number] - [id number] Implanted:Qty: 1 on 04/01/2023 by Amara Pearson MD at [facility] [employer]/ Ortho [id number] / / [employer]/ Ortho Evos 2.7mm 4.5mm 18mm Self Tap Cortex T8 Screw Bone Nonsterile [id number] - [id number] Implanted:Qty: 1 on 04/01/2023 by Amara Pearson MD at [facility] & Nephew/[employer]/ Ortho [id number] / / Procedures Procedure Name Priority Date/Time Associated Diagnosis Comments DEXA AXIAL SKELETON BONE DENSITY 1 OR MORE SITES Schedule Routine, Read Routine (OP Routine) 06/18/2024 2:39 PM RURAL MAIL CONTRACTOR Postmenopause VITAMIN B12 Routine 05/26/2024 9:59 AM RURAL MAIL CONTRACTOR Vitamin B12 deficiency T4, FREE Routine 05/26/2024 9:59 AM RURAL MAIL CONTRACTOR Hypothyroidism determined by thyroid function test TSH Routine 05/26/2024 9:59 AM RURAL MAIL CONTRACTOR Hypothyroidism determined by thyroid function test COMPREHENSIVE METABOLIC PANEL Routine 05/26/2024 9:59 AM RURAL MAIL CONTRACTOR Alcoholism (CMS/HCC) (HCC) CBC WITH AUTO DIFFERENTIAL Routine 05/26/2024 9:59 AM RURAL MAIL CONTRACTOR Alcoholism (CMS/HCC) (HCC) SCREENING MAMMOGRAM 2D BILATERAL Routine 08/05/2013 3:09 PM CDT from Last 3 Months or Most Recently Relevant to Health Maintenance Results * Dexa Axial Skeleton Bone Density 1 or 2 Site (06/18/2024 2:39 PM RURAL MAIL CONTRACTOR) Anatomical Region Laterality Modality Body N/A Radiographic Martina ging Narrative 06/19/2024 4:40 PM RURAL MAIL CONTRACTOR Patient Name: Ann Mcintosh Date of : 1955 Date of scan: 06/18/2024 Bone mineral density was performed on a HoloMIKESTAR Discovery Densitometer. Based on machine cross-calibration and [...] by the International Society of Clinical Densitometry. [id number] Ember Sahni MD [facility] DXA PROCEDURES Final Result * (ABNORMAL) CBC with auto differential (05/26/2024 9:59 AM RURAL MAIL CONTRACTOR) Pathologist [facility] WBC 8.7 3.8 - 10.8 Thousand/u L [...] [facility] Blood 05/26/2024 9:59 AM RURAL MAIL CONTRACTOR 05/26/2024 9:59 AM RURAL MAIL CONTRACTOR Ember Sahni MD LAB BLOOD ORDERABLES Fin al Result Performing Organization Address [facility] Co de Phone Number [facility] [address] [place] [address] * TSH (05/26/2024 9:59 AM RURAL MAIL CONTRACTOR) TSH 1.97 0.40 - 4.50 mIU/L [facility] Blood 05/26/2024 9:59 AM RURAL MAIL CONTRACTOR 05/26/2024 9:59 AM RURAL MAIL CONTRACTOR Ember Sahni MD LAB BLOOD ORDERABLES Fin al Result Performing Organization Address [facility] de Phone Number [facility] [address] [place] [address] * T4, free (05/26/2024 9:59 AM RURAL MAIL CONTRACTOR) Free T4 1.4 0.8 - 1.8 ng/dL [facility] Blood 05/26/2024 9:59 AM RURAL MAIL CONTRACTOR 05/26/2024 9:59 AM RURAL MAIL CONTRACTOR Ember Sahni MD LAB BLOOD ORDERABLES Fin al Result Performing Organization Address [facility] Co de Phone Number [facility] [address] [place] [address] * Vitamin B12 (05/26/2024 9:59 AM RURAL MAIL CONTRACTOR) Pathologist [facility] Vitamin B12 312 200 - 1,100 pg/mL [...] will have symptoms. Blood 05/26/2024 9:59 AM RURAL MAIL CONTRACTOR 05/26/2024 9:59 AM RURAL MAIL CONTRACTOR us Ember Sahni MD LAB BLOOD ORDERABLES Fin al Result [facility] [address] [place] [address] * Comprehensive metabolic panel (05/26/2024 9:59 AM RURAL MAIL CONTRACTOR) Pathologist [facility] Glucose 86 65 - 99 mg/dL [facility] [...] [facility] Blood 05/26/2024 9:59 AM RURAL MAIL CONTRACTOR 05/26/2024 9:59 AM RURAL MAIL CONTRACTOR us Ember Sahni MD LAB BLOOD ORDERABLES Fin al Result [facility] [address] [place] [address] * Screening Mammogram 2D Bilateral (08/05/2013 3:09 [...] Almonte M.D. KL:td 07:34 AM 07:34 AM [facility] [EOD] Alva Fraser MD IMG MAMMO PROCEDURES Final Resu lt from Last 3 Months or Most Recently Relevant to Health Maintenance Insurance [facility] CHOICE PLUS [employer] CHOICE MEDICARE PPO [employer] CHOICE MEDICARE PPO [employer] CHOICE MEDICARE PPO HU[employer] CHOICE MEDICARE PPO Advance Directives For more information, please contact: [phone] Documents on File Type Date Recorded Patient Line Haul Driver Expl anation ADVANCE DIRECTIVE 05/22/2022 6:11 AM Livin g Will Advance Directives and Livin g Will 09/11/2021 8:19 AM * Full Code (Latest Code Status on File) Date Activated Date Inactivated Comments 06/14/2022 1:56 PM 06/15/2022 4:06 PM * Full Code Date Activated Date Inactivated Comments 05/22/2022 12:40 PM 05/23/2022 5:14 PM Care Teams Clinical Trial Specialist Relationship Specialty Start Date End Date Ember Sahni MD [address] [address] PCP - General Internal Medicine 02/11/19
--- OUTSIDE RECORDS SUMMARY | 2024-07-06 18:41 | XMS_ITS | Encounter Summary ---
Author Organization [facility] Address [address] [address] Phone Care Team Providers Care Fermentation Engineer Name Role Phone Ember Sahni MD Primary Care Provider + Encounter Details Date Type Department Care Team (Late st Contact Info) Description 07/06/2024 [facility] [address] [facility] 5th Floor [address] [place], [place] [address] Mary Hurtado Social History Tobacco Use Types Packs/Day Years [...] on file Legal Sex Female 2:14 AM PREP MANAGER Gender Identity Not on file Sexual Orientation Not on file documented as of this encounter Miscellaneous Notes * Telephone Encounter - Mary Hurtado - 07/06/2024 3:33 PM CST Spoke w/ Ankit/, pt is very confused & legs are very weak. States it started last evening, but has gotten worse today. He went to an apt today & when he came home he found her on the floor - she couldn't get up. Ptsaid she had fallen & hit her head. Instructed to go to the ER. Verbalized understanding. He will take her to [facility]. MANAGER documented in this encounter Plan of Treatment Not on file documented as of this encounter Goals Goal Patient Goal Type Associated Problems Recent Progress Patient-Stated? Author CCM Chronic Pain Care Plan Chronic Care Management No change(05/08 9:34 AM PREP MANAGER) No Marla Luna, PABLO Note: Problem: Chronic Pain Goals: 1. Minimize further functional decline 2. Maximize quality of life 3. Control pain Strategies: - Activity/exercise program recommendation - Conservative stepwise pain medicine strategy with multi-disciplinary approach - Recommend healthy lifestyle strategies and compensatory methods as needed documented as of this encounter Visit Diagnoses Not on filedocumented in this encounter Care Teams Fermentation Engineer Relationship Specialty Start Date End Date Ember Sahni MD [address] [address] PCP - General Internal Medicine 02/11/19 documented as of this encounter
--- OUTSIDE RECORDS SUMMARY | 2024-07-06 18:42 | XMS_ITS ---
Author Organization [facility] [employer] Address [address] [facility] [address] [place] [address] Care Team Providers Care Stage Rigger Name Role Phone Yony Thena Unavailable [phone] REASON FOR VISIT New Refill Request Social History Sex Assigned At : Social History Observation Description Sex Assigned At Female Encounters Encounter Location Date Provider Diagnosis [facility] [employer] [facility] [address] [place] [address] 06/13/2024 Thena Yony Plan Of Treatment Next Appt Details Provider Name:Lala Alonso , 07/22/2024 11:15:00 AM, [address], [facility] [address], [place], [address], Progress Notes * LAKIAMAVERICKYAKOV AGUILADOB:[birth year] (69 yo F)Acc No.[id number]:06/13/2024 Patient: YAKOV CANAS :1955 A ge:69 Y S ex:Female Address:[place], [address] * true * Date: Generated for Hudsoni ng/Fatamyg/eTransmitting on: 0 07/06/2024 06:41 PM TRAVELER CHANGER
--- NOTE | 2024-07-06 20:16 | PC.NURSE ---
pt called no answer.
--- OUTSIDE RECORDS SUMMARY | 2024-07-06 21:41 | XMS_ITS | Clinical Summary ---
Author Organization [facility] [employer] Address [address] [facility] [place] [address] Care Team Providers Care Supervisor Tower Name Role Phone Satnam Madrigal MD Primary Care Provider [phone] Jefry Cho MD Unavailable [phone] Source Comments [facility] [employer],non-owned Affiliates and Associated Physician Practices is amultiple site organization consisting of ambulatory clinics and hospital sitesin [place], [place], [place] and [place]. This disclosure is being madepursuant to the Care Everywhere program and may not contain all information available regarding this patient. Last updated 18.[facility] [employer] Allergies No known active allergies Medications * [...] this topic Medical Devices Implanted Type Area Pants Maker Device Identifier Shelf Expiration Date Model / Serial / Lot Cmnt Bone Cblt 40gm Hvisc Strl Implanted:Qty: 1 on 11/06/2017 by Jefry Cho MD at [facility] Left: Knee [employer] 01/09/2019 600-15-000 / / [id number] Tray Tib 67mm Kn Cocr I Beam Implanted:Qty: 1 on 11/06/2017 by Jefry Cho MD at [facility] Left: Knee [employer] 08/04/2027 [id number] / / [id number] Cmpnt Fem Kn Lt Cr Cmnt Prm Vngrd Intlk 60mm Implanted:Qty: 1 on 11/06/2017 by Jefry Cho MD at [facility] Left: Knee [employer] 07/16/2027 [id number] / / [id number] Cmpnt Ptlr 28mm 1 Pg Wire Ascnt Arcm Kn Implanted:Qty: 1 on 11/06/2017 by Jefry Cho MD at [facility] Left: Knee [employer] 10/21/2022 [id number] / / [id number] Vngrd Arcm Kn Ant Stab Implanted:Qty: 1 on 11/06/2017 by Jefry Cho MD at [facility] Left: Knee [employer] 10/08/2022 [id number] / / [id number] Advance Directives * Full Code (Latest Code Status on File) Date Activated Date Inactivated Comments 11/06/2017 12:11 PM 11/08/2017 12:42 PM Care Teams Supervisor Tower Relationship Specialty Start Date End Date Satnam Madrigal MD PCP - General Internal Medicine 07/21/17 [place] [address] [address] Orthopedic Surgery 07/21/17
--- OUTSIDE RECORDS SUMMARY | 2024-07-06 21:41 | XMS_ITS | Clinical Summary ---
Author Organization [facility] Address [address] [place] [address] Care Team Providers Care Temperature Control Inspector Name Role Phone Unavailable Primary Care Provider [...] Documents on File Type Date Recorded Patient Facilities Maintenance Supervisor Expl anation Advance Directives and Living Will 10/20/2018 12:00 AM ADVANCED DIRECTIVES Advance Directives and Living Will 10/16/2018 12:00 AM ADVANCED DIRECTIVES
--- OUTSIDE RECORDS SUMMARY | 2024-07-06 21:41 | XMS_ITS | Clinical Summary ---
Author Organization [facility] Address [address] [place] [address] Care Team Providers Care Automatic Transmission Mechanic Name Role Phone Ember Sahni MD Primary [...] (06/06/2022): Added automatically from request for surgery [id number] S/P reverse total shoulder arthroplasty, right 0 05/22/2022 Glenohumeral arthritis, right 05/22/2022 Ptosis of breast 12/19/2021 Overview (12/19/2021): Added automatically from request for surgery [id number] Vitamin B12 deficiency 09/13/2020 Physical exam 09/13/2020 [...] Type Department Care Team Description 07/06/2024 Telephone [facility] [address] [place] [address] 5th [place] [address] Mary Hurtado 06/18/2024 2:50 PM SACK REPAIRER Clinical Support [address] 5th [place] [address] Osteopenia of left hip (Primary Dx); Postmenopause 05/28/2024 [facility] [address] [place] [address] [place] [address] Ember Jimenez MBA Info 05/26/2024 10:00 AM SACK REPAIRER Office Visit [facility] [address] [place] [address] [place] [address] Ember Sahni MD Hypothyroidism determined by thyroid function test (Primary Dx); Hypothyroidism, unspecified type; Alcoholism (CMS/HCC) ([facility]); Vitamin B12 deficiency 05/21/2024 [facility] 5th [place] [address] Ember Jimenez MBA Medication correction 05/03/2024 [facility] [address] [place] [address] Mary Hurtado 04/30/2024 Orders Only [facility] [address] [place] [address] 5th [place] [address] Ember Sahni MD Postmenopause (Primary Dx) 04/30/2024 [facility] [address] [place] [address] [place] [address] Ember Jimenez MBA Discuss her visit with [...] 03/21/2018,08/12/2017 Surgical History Surgery Date Site/Laterality Comments [place] DELIVERY ONLY 05/12/1990 - 05/11/1991 Section - [...] on file Legal Sex Female 2:14 AM SACK REPAIRER Gender Identity Not on file Sexual Orientation [...] 53.1 kg (117 lb) 05/26/2024 9:29 AM SACK REPAIRER Height 156.2 cm (5' 1.5 ) 12/29/2023 [...] Chronic Care Management No change(05/08 9:34 AM SACK REPAIRER) No Marla Luna, RN Note: Problem: Chronic Pain Goals: 1. Minimize further functional decline 2. Maximize quality of life 3. Control pain Strategies: - Activity/exercise program recommendation - Conservative stepwise pain medicine strategy with multi-disciplinary approach - Recommend healthy lifestyle strategies and compensatory methods as needed Medical Devices Implanted Type Area Hard Metals Hand Engraver Device Identifier Shelf Expiration Date Model / Serial / Lot Sientra Breast Implant 335cc Implanted:Qty: 1 on 09/11/2021 by Annel Lewis MD at [facility] Breast Left: Breast Sientra Inc 07/05/2026 [id number] [id number] / [id number] / Sientra Breast Implant 335cc Implanted:Qty: 1 on 09/11/2021 by Annel Lewis MD at [facility] Breast Right: Breast Sientra Inc 06/19/2026 [id number] 335MP / [id number] / [employer] Od25 Mm Full Wedge Augment Shoulder 15 D Baseplate Glenoid [id number] - [id number] - [id number] Implanted:Qty: 1 on 05/22/2022 by Humza Steele MD at [facility] Other - see comments Right: Shoulder [employer] Inc 02/21/2027 TZB987 / [id number] / [employer] Tornier Aequalis Perform 15mm Press Fit Long Post Shoulder Zcw783 - [id number] - [id number] Implanted:Qty: 1 on 05/22/2022 by Humza Steele MD at [facility] Other - see comments Right: Shoulder [employer] 12/04/2026 HKO560 / [id number] / [employer] Tornier Aequalis Perform 36mm Reverse Shoulder Standard Sphere Hbz409 - [id number] - [id number] Implanted:Qty: 1 on 05/22/2022 by Humza Steele MD at [facility] Other - see comments Right: Shoulder [employer] 02/26/2027 QMM005 / [id number] / [employer] Aequalis Perform Reversed 5mm 22mm Peripheral Glenoid Screw Ozc725 - [id number] Implanted:Qty: 2 on 05/22/2022 by Humza Steele MD at [facility] Other - see comments Right: Shoulder [employer] [id number] / / [employer] Aequalis Perform Reversed 5mm 30mm Peripheral Glenoid Screw Res214 - [id number] Implanted:Qty: 1 on 05/22/2022 by Humza Steele MD at [facility] Other - see comments Right: Shoulder [employer] IZD178 / / [employer] Stem Perform Sz 2 Humeral Dwx2ss - [id number] - [id number] Implanted:Qty: 1 on 05/22/2022 by Humza Steele MD at [facility] Other - see comments Right: Shoulder [employer] 10/12/2026 DWX2SS / [id number] / [employer] Insert Perform Ret Gin5027 Ntj6972 - [id number] - [id number] Implanted:Qty: 1 on 05/22/2022 by Humza Steele MD at [facility] Other - see comments Right: Shoulder [employer] 05/02/2025 GDT5277 / [id number] / [employer] Latitude 8-15mm Restrictor Elbow Restrictor Cement Tkd228 - [id number] - [id number] Implanted:Qty: 1 on 06/14/2022 by Humza Steele MD at [facility] [employer] Inc [id number] 01/18/2027 SZV909 / [id number] / [employer] Simplex P Radiopaque Full Dose Cement Bone Sterile 6191-1-010 - [id number] Implanted:Qty: 1 on 06/14/2022 by Humza Steele MD at [facility] [employer] 10/09/2024 6191-1-01 0 / / [employer] Simplex P Radiopaque Full Dose Cement Bone Sterile 6191-1-010 - [id number] Implanted:Qty: 1 on 06/14/20[facility] 11/08/2024 6191--01 0 / / C[employer]Note [employer] Inc Stem Perform Sz 1 Plus Humeral Long Dwx1pl - [id number] Implanted:Qty: 1 on 06/14/2022 by Humza Steele MD at [facility] [employer] Inc 01/17/2027 DWX1PL / / C[employer] Inc [id number] Insert Perform Vqv7287 - [id number] Implanted:Qty: 1 on 06/14/2022 by Humza Steele MD at [facility] [employer] Inc 04/10/2026 [id number] / / Allosource Freeze Dried Chips 1-10mm Graft 15ml Bone Cancellous [id number] - [id number] - [id number] Implanted:Qty: 1 on 04/01/2023 by Amara Pearson MD at [facility] [employer] 08/22/2027 [id number] / [id number] / [id number] Synthes 3.5mm 6mm 150mm 2.5mm Self Tap Low Profile Small Hexagonal Socket 204.750 - [id number] Implanted:Qty: 1 on 04/01/2023 by Amara Pearson MD at [facility] Synthes I 204.750 / / Pal[employer]hew[employer]/ Ortho Evos Mini 71mm 3 Hole Head 9 Hole Shaft Low Profile Variable [id number] - [id number] Implanted:Qty: 1 on 04/01/2023 by Amara Pearson MD at [facility] [employer]/ Ortho [id number] / / [employer]/ Ortho 2.7mm 4.5mm 28mm Self Tap Cortex T8 2mm Screw Bone Evos [id number] - [id number] Implanted:Qty: 1 on 04/01/2023 by Amara Pearson MD at [facility] [employer]/ Ortho [id number] / / [employer]/ Ortho Evos Mini 2.7mm 4.5mm 38mm Self Tap Cortex T8 Screw Bone Sterile [id number] - [id number] Implanted:Qty: 1 on 04/01/2023 by Amara Pearson MD at [facility] [employer]/ Ortho [id number] / / [employer]/ Ortho Evos 2.7mm 4.5mm 18mm Self Tap Cortex T8 Screw Bone Nonsterile [id number] - [id number] Implanted:Qty: 1 on 04/01/2023 by Amara Pearson MD at [facility] & Nephew/[employer]/ Ortho [id number] / / Procedures Procedure Name Priority Date/Time Associated Diagnosis Comments DEXA AXIAL SKELETON BONE DENSITY 1 OR MORE SITES Schedule Routine, Read Routine (OP Routine) 06/18/2024 2:39 PM SACK REPAIRER Postmenopause VITAMIN B12 Routine 05/26/2024 9:59 AM SACK REPAIRER Vitamin B12 deficiency T4, FREE Routine 05/26/2024 9:59 AM SACK REPAIRER Hypothyroidism determined by thyroid function test TSH Routine 05/26/2024 9:59 AM SACK REPAIRER Hypothyroidism determined by thyroid function test COMPREHENSIVE METABOLIC PANEL Routine 05/26/2024 9:59 AM SACK REPAIRER Alcoholism (CMS/HCC) (HCC) CBC WITH AUTO DIFFERENTIAL Routine 05/26/2024 9:59 AM SACK REPAIRER Alcoholism (CMS/HCC) (HCC) SCREENING MAMMOGRAM 2D BILATERAL Routine 08/05/2013 3:09 PM CDT from Last 3 Months or Most Recently Relevant to Health Maintenance Results * Dexa Axial Skeleton Bone Density 1 or 2 Site (06/18/2024 2:39 PM SACK REPAIRER) Anatomical Region Laterality Modality Body N/A Radiographic Martina ging Narrative 06/19/2024 4:40 PM SACK REPAIRER Patient Name: Ann Mcintosh Date of : 1955 Date of scan: 06/18/2024 Bone mineral density was performed on a HoloSimio Discovery Densitometer. Based on machine cross-calibration and [...] by the International Society of Clinical Densitometry. [id number] Ember Sahni MD [facility] DXA PROCEDURES Final Result * (ABNORMAL) CBC with auto differential (05/26/2024 9:59 AM SACK REPAIRER) Pathologist [facility] WBC 8.7 3.8 - 10.8 Thousand/u L [...] [facility] Blood 05/26/2024 9:59 AM SACK REPAIRER 05/26/2024 9:59 AM SACK REPAIRER Ember Sahni MD LAB BLOOD ORDERABLES Fin al Result Performing Organization Address [facility] Co de Phone Number [facility] [address] [place] [address] * TSH (05/26/2024 9:59 AM SACK REPAIRER) TSH 1.97 0.40 - 4.50 mIU/L [facility] Blood 05/26/2024 9:59 AM SACK REPAIRER 05/26/2024 9:59 AM SACK REPAIRER Ember Sahni MD LAB BLOOD ORDERABLES Fin al Result Performing Organization Address [facility] de Phone Number [facility] [address] [place] [address] * T4, free (05/26/2024 9:59 AM SACK REPAIRER) Free T4 1.4 0.8 - 1.8 ng/dL [facility] Blood 05/26/2024 9:59 AM SACK REPAIRER 05/26/2024 9:59 AM SACK REPAIRER Ember Sahni MD LAB BLOOD ORDERABLES Fin al Result Performing Organization Address City/[facility] Co de Phone Number [facility] [address] [place] [address] * Vitamin B12 (05/26/2024 9:59 AM SACK REPAIRER) Pathologist [facility] Vitamin B12 312 200 - 1,100 pg/mL [...] will have symptoms. Blood 05/26/2024 9:59 AM SACK REPAIRER 05/26/2024 9:59 AM SACK REPAIRER us Ember Sahni MD LAB BLOOD ORDERABLES Fin al Result [facility] [address] [place] [address] * Comprehensive metabolic panel (05/26/2024 9:59 AM SACK REPAIRER) Pathologist [facility] Glucose 86 65 - 99 mg/dL [facility] [...] [facility] Blood 05/26/2024 9:59 AM SACK REPAIRER 05/26/2024 9:59 AM SACK REPAIRER us Ember Sahni MD LAB BLOOD ORDERABLES Fin al Result [facility] [address] [place] [address] * Screening Mammogram 2D Bilateral (08/05/2013 3:09 [...] Almonte M.D. KL:td 07:34 AM 07:34 AM [facility] [EOD] Alva Fraser MD IMG MAMMO PROCEDURES Final Resu lt from Last 3 Months or Most Recently Relevant to Health Maintenance Insurance [facility] HMO/PPO Address: [address] [address] [place] [address] [employer] CHOICE MEDICARE PPO [employer] CHOICE MEDICARE PPO [employer] CHOICE MEDICARE PPO [employer] CHOICE MEDICARE PPO Advance Directives For more information, please contact: [phone] Documents on File Type Date Recorded Patient Maple [employer] Maker Expl anation ADVANCE DIRECTIVE 05/22/2022 6:11 AM Livin g Will Advance Directives and Livin g Will 09/11/2021 8:19 AM * Full Code (Latest Code Status on File) Date Activated Date Inactivated Comments 06/14/2022 1:56 PM 06/15/2022 4:06 PM * Full Code Date Activated Date Inactivated Comments 05/22/2022 12:40 PM 05/23/2022 5:14 PM Care Teams Automatic Transmission Mechanic Relationship Specialty Start Date End Date Ember Sahni MD [address] [address] PCP - General Internal Medicine 02/11/19
--- OUTSIDE RECORDS SUMMARY | 2024-07-06 21:41 | XMS_ITS | Referral Summary ---
Author Organization [facility] [employer] Address [address] [place] [address] Care Team Providers Care Football Pad Repairer Name Role Phone Satnam Madrigal MD Primary Care Provider [phone] Jefry Cho MD Unavailable [phone] Source Comments [facility] [employer],non-owned Affiliates and Associated Physician Practices is amultiple site organization consisting of ambulatory clinics and hospital sitesin [place], [place], [place] and [place]. This disclosure is being madepursuant to the Care Everywhere program and may not contain all information available regarding this patient. Last updated 18.[facility] [employer] Allergies No known active allergies Medications * [...] on file Medical Devices Implanted Type Area Field Servicer Device Identifier Shelf Expiration Date Model / Serial / Lot Cmnt Bone Cblt 40gm Hvisc Strl Implanted:Qty: 1 on 11/06/2017 by Jefry Cho MD at [facility] Left: Knee [employer] 01/09/2019 600-15-000 / / [id number] Tray Tib 67mm Kn Cocr I Beam Implanted:Qty: 1 on 11/06/2017 by Jefry Cho MD at [facility] Left: Knee Junior [employer] 08/04/2027 [id number] / / [id number] Cmpnt Fem Kn Lt Cr Cmnt Prm Vngrd Intlk 60mm Implanted:Qty: 1 on 11/06/2017 by Jefry Cho MD at [facility] Left: Knee [employer] 07/16/2027 [id number] / / [id number] Cmpnt Ptlr 28mm 1 Pg Wire Ascnt Arcm Kn Implanted:Qty: 1 on 11/06/2017 by Jefry Cho MD at [facility] Left: Knee [employer] 10/21/2022 [id number] / / [id number] Vngrd Arcm Kn Ant Stab Implanted:Qty: 1 on 11/06/2017 by Jefry Cho MD at [facility] Left: Knee [employer] 10/08/2022 [id number] / / [id number] Advance Directives * Full Code (Latest Code Status on File) Date Activated Date Inactivated Comments 11/06/2017 12:11 PM 11/08/2017 12:42 PM Care Teams Football Pad Repairer Relationship Specialty Start Date End Date Satnam Madrigal MD PCP - General Internal Medicine 07/21/17 [place] [address] [place] [address] Orthopedic Surgery 07/21/17
--- OUTSIDE RECORDS SUMMARY | 2024-07-06 21:41 | XMS_ITS | Patient Health Summary ---
Author Organization [facility] Address [address] [place] [address] Care Team Providers Care Material Processor Name Role Phone Satnam Madrigal MD Primary Care Provider [phone] Jefry Cho MD Unavailable [phone] Note from [facility],non-owned Affiliates and Associated Physician Practices is amultiple site organization consisting of ambulatory clinics and hospital sitesin [place], [place]. This disclosure is being madepursuant to the Care Everywhere program and may not contain all information available regarding this patient. Last updated 18.[facility] Allergies No known active allergies Medications * [...] AM CDT Medical Devices Implanted Type Area Fiberglass Roving Winder Device Identifier Shelf Expiration Date Model / Serial / Lot Cmnt Bone Cblt 40gm Hvisc Strl Implanted:Qty: 1 on 11/06/2017 by Jefry Cho MD at [facility] Left: Knee [employer] 01/09/2019 600-15-000 / / [id number] Tray Tib 67mm Kn Cocr I Beam Implanted:Qty: 1 on 11/06/2017 by Jefry Cho MD at [facility] Left: Knee [employer] 08/04/2027 [id number] / / [id number] Cmpnt Fem Kn Lt Cr Cmnt Prm Vngrd Intlk 60mm Implanted:Qty: 1 on 11/06/2017 by Jefry Cho MD at [facility] Left: Knee [employer] 07/16/2027 [id number] / / [id number] Cmpnt Ptlr 28mm 1 Pg Wire Ascnt Arcm Kn Implanted:Qty: 1 on 11/06/2017 by Jefry Cho MD at [facility] Left: Knee [employer] 10/21/2022 [id number] / / [id number] Vngrd Arcm Kn Ant Stab Implanted:Qty: 1 on 11/06/2017 by Jefry Cho MD at [facility] Left: Knee [employer] 10/08/2022 [id number] / / [id number] Procedures * XR KNEE LEFT 3VW(Performed 03/30/2019) [...] XR KNEE LEFT 3VW (03/30/2019 3:54 PM STORAGE WORKER) Only the most recent of3 resultswithin the time period is included. Anatomical Region Laterality Modality Lower Extremity Computed Radiogr aphy Narrative 03/30/2019 3:55 PM STORAGE WORKER Kristy Schaeffer RT(R) 04/15/2019 5:45 PM See progress notes for results Jefry Cho MD DIAGNOSTIC IMAGING O RDERABLES * (ABNORMAL) HGB HCT PANEL (11/08/2017 4:38 AM CDT) Only the most recent of2 resultswithin the time period is included. Hemoglobin 11.4(L) 12.0 - 15.6 gm/dL 11/08/2017 5:17 AM CDT [facility] Hematocrit 35.8(L) 35.9 - 45.5 % 11/08/2017 5:17 AM CDT [facility] Blood BLOOD SPECIMEN / Unknown Venipuncture / Unknown 11/08/2017 4:38 AM CDT 11/08/2017 5:04 AM CDT Jefry Cho MD LAB - HEMATOLOGY ORD ERABLES Performing Organization Address City/[facility]/ZIP Co de Phone Number [facility] [address] [place], [place] [id number] * CULTURE MSSA/MRSA (10/13/2017 2:31 PM CDT) Pathologist [facility] Culture Negative for Staphylococcus aureus (MRSA/MSSA) LUIS ANGEL 10/15/2017 7:51 AM CDT [facility] MICROBIOLOGY Microbiology SPECIMEN FROM NASAL FOSSAE / Unknown Collection / Unknown 10/13/2017 2:31 PM CDT 10/13/2017 4:04 PM CDT Jefry Cho MD LAB - MICROBIOLOGY O RDERABLES [facility]CRO[facility] [address] [place] [address], [facility] [phone] * (ABNORMAL) CBC W AUTO DIFFERENTIAL (10/13/2017 2:31 PM CDT) WBC 5.5 4.4 - 10.7 x10E9/L 10/13/2017 4:08 PM CDT [facility] WBC Corrected x10E9/L 10/13/2017 4:08 PM CDT [facility] RBC 4.00 3.80 - 5.20 x10E12/L 10/13/2017 4:08 PM CDT [facility] Hemoglobin 13.6 12.0 - 15.6 gm/dL 10/13/2017 4:08 PM CDT [facility] Hematocrit 42.3 35.9 - 45.5 % 10/13/2017 4:08 PM CDT [facility] MCV 105.8(H) 80.7 - 98.3 fl 10/13/2017 4:08 PM CDT [facility] MCH 34.0 26.7 - 34.0 pg 10/13/2017 4:08 PM CDT [facility] MCHC 32.2 30.8 - 35.9 gm/dL 10/13/2017 4:08 PM CDT [facility] Platelet Count 283 153 - 416 x10E9/L 10/13/2017 4:08 PM CDT [facility] RDW-CV 12.5 12.1 - 14.9 % 10/13/2017 4:08 PM CDT [facility] MPV 9.7 9.4 - 12.9 fl 10/13/2017 4:08 PM CDT [facility] Neutrophils % 53.5 44.0 - 73.0 % 10/13/2017 4:08 PM CDT [facility] Lymphocytes % 31.0 20.0 - 43.0 % 10/13/2017 4:08 PM CDT [facility] Monocytes % 11.3 5.0 - 13.0 % 10/13/2017 4:08 PM CDT [facility] Eosinophils % 3.3 0.0 - 6.0 % 10/13/2017 4:08 PM CDT [facility] Basophils % 0.4 0.0 - 2.0 % 10/13/2017 4:08 PM CDT [facility] Immature Granulocytes 0.5 0 - 1 % 10/13/2017 4:08 PM CDT [facility] Neutrophil Absolute 2.94 2.01 - 7.14 x10E9/L 10/13/2017 4:08 PM CDT [facility] Lymphocytes Absolute 1.70 1.07 - 3.94 x10E9/L 10/13/2017 4:08 PM CDT [facility] Monocytes Absolute 0.62 0.26 - 1.07 x10E9/L 10/13/2017 4:08 PM CDT [facility] Eosinophils Absolute 0.18 0 - 0.47 x10E9/L 10/13/2017 4:08 PM CDT [facility] Basophils Absolute 0.02 0 - 0.08 x10E9/L 10/13/2017 4:08 PM CDT [facility] Immature Granulocytes Absolute 0.03 0.00 - 0.06 x10E9/L 10/13/2017 4:08 PM CDT [facility] nRBC Auto 0 /100 WBC 10/13/2017 4:08 PM CDT [facility] Blood BLOOD SPECIMEN / Unknown Venipuncture / Unknown 10/13/2017 2:31 PM CDT 10/13/2017 4:04 PM CDT Jefry Cho MD LAB - HEMATOLOGY ORD ERABLES [facility] [address] [place] [address] * (ABNORMAL) COMPREHENSIVE METABOLIC PANEL (10/13/2017 2:31 PM CDT) Glucose 76 74 - 106 mg/dL 10/13/2017 4:36 PM CDT [facility] Sodium 140 136 - 145 mmol/L 10/13/2017 4:36 PM CDT [facility] Potassium 3.6 3.5 - 5.1 mmol/L 10/13/2017 4:36 PM CDT [facility] Chloride 105 98 - 107 mmol/L 10/13/2017 4:36 PM CDT [facility] CO2 24 22 - 31 mmol/L 10/13/2017 4:36 PM CDT [facility] Calcium 9.0 8.5 - 10.1 mg/dL 10/13/2017 4:36 PM [facility] Anion Gap 11 8 - 16 mmol/L 10/13/2017 4:36 PM CDT [facility] BUN 13 7 - 21 mg/dL 10/13/2017 4:36 PM CDT [facility] Creatinine 0.91 0.50 - 1.30 mg/dL 10/13/2017 4:36 PM CDT [facility] Alkaline Phosphatase 139(H) 38 - 126 U/L 10/13/2017 4:36 PM CDT [facility] ALT 118(H) 13 - 61 U/L 10/13/2017 4:36 PM CDT [facility] AST 119(H) 5 - 40 U/L 10/13/2017 4:36 PM CDT [facility] Protein Total 7.2 6.4 - [...] Jefry Cho MD LAB - CHEMISTRY ORDE [facility] Performing Organization Address City/[facility] Co de Phone Number [facility] [address] [place] [address] * EKG 12-LEAD (10/13/2017 1:50 PM CDT) Ventricular Rate 89 BPM [facility] Atrial Rate 89 BPM [facility] P-R Interval 176 ms [facility] QRS Duration ms 116 ms [facility] Q-T Interval ms 404 ms [facility] QTC Calculation (Bezet) 491 ms [facility] Calculated P [place] 43 degrees [facility] Calculated R [place] -48 degrees [facility] Calculated T [place] 34 degrees [facility] Interpretation EKG Normal [...] Cho MD ECG ORDERABLES Performing Organization Address City/[facility]/ZIP Co de Phone Number [facility] Care Teams Material Processor Relationship Specialty Start Date End Date Satnam Madrigal MD PCP - General Internal Medicine 07/21/17 [place] [address] [address] Orthopedic Surgery 07/21/17
--- OUTSIDE RECORDS SUMMARY | 2024-07-06 21:41 | XMS_ITS | Encounter Summary ---
Author Organization [facility] Address [address] [address] Phone Care Team Providers Care Woods Rider Name Role Phone Ember Sahni MD Primary Care Provider + Encounter Details Date Type Department Care Team (Late st Contact Info) Description 07/06/2024 [facility] [address] [facility] Advanced Medicine 5th Floor [address] [place], [place] [id number] Mary Hurtado Social History Tobacco Use Types [...] on file Legal Sex Female 2:14 AM MARKETING PLANNING MANAGER Gender Identity Not on file Sexual [...] Verbalized understanding. He will take her to [facility]. ETING PLANNING MANAGER documented in this encounter Plan of Treatment Not on file documented as of this encounter Goals Goal Patient Goal Type Associated Problems Recent Progress Patient-Stated? Author CCM Chronic Pain Care Plan Chronic Care Management No change(05/08 9:34 AM MARKETING PLANNING MANAGER) No Marla Luna, PABLO Note: Problem: Chronic Pain Goals: 1. Minimize further functional decline 2. Maximize quality of life 3. Control pain Strategies: - Activity/exercise program recommendation - Conservative stepwise pain medicine strategy with multi-disciplinary approach - Recommend healthy lifestyle strategies and compensatory methods as needed documented as of this encounter Visit Diagnoses Not on filedocumented in this encounter Care Teams Woods Rider Relationship Specialty Start Date End Date Ember Sahni MD [address] [address] PCP - General Internal Medicine 02/11/19 documented as of this encounter
--- OUTSIDE RECORDS SUMMARY | 2024-07-06 21:41 | XMS_ITS | Encounter Summary ---
Author Organization [facility] Address [address] [place] [address] Care Team Providers Care Power Transformer Assembler Name Role Phone Ember Sahni MD Primary Care Provider + Encounter Details Date Type Department Care Team (Late st Contact Info) Description 03/28/2023 Telephone [facility] [address] [place] [address] Josefina Cruz RN Social History Tobacco [...] on file Legal Sex Female 2:14 AM RELATIONS LIAISON Gender Identity Not on file Sexual Orientation Not on file documented as of this encounter Plan of Treatment Not on file documented as of this encounter Goals Goal Patient Goal Type Associated Problems Recent Progress Patient-Stated? Author CCM Chronic Pain Care Plan Chronic Care Management No change(05/08 9:34 AM RELATIONS LIAISON) No Marla Luna, RN Note: Problem: Chronic [...] documented as of this encounter Care Teams Power Transformer Assembler Relationship Specialty Start Date End Date Ember Sahni MD [address] [address] PCP - General Internal Medicine 02/11/19 documented as of this encounter
--- OUTSIDE RECORDS SUMMARY | 2024-07-06 21:41 | XMS_ITS | Encounter Summary ---
Author Organization [facility] Address [address] [address] Phone Care Team Providers Care Icu Rn Name Role Phone Ember Sahni MD Primary Care Provider + Encounter Details Date Type Department Care Team (Late st Contact Info) Description 03/18/2023 Orders Only [place] [facility] [address] [facility] Advanced Medicine 5th Floor [address] [place], [place] [id number] Scanning, Provider Social History Tobacco Use Types [...] on file Legal Sex Female 2:14 AM STAFF DEVELOPER Gender Identity Not on file Sexual Orientation Not on file documented as of this encounter Plan of Treatment Not on file documented as of this encounter Goals Goal Patient Goal Type Associated Problems Recent Progress Patient-Stated? Author CCM Chronic Pain Care Plan Chronic Care Management No change(05/08 9:34 AM STAFF DEVELOPER) No Marla Luna, RN Note: Problem: Chronic [...] documented as of this encounter Care Teams Icu Rn Relationship Specialty Start Date End Date Ember Sahni MD [address] [address] PCP - General Internal Medicine 02/11/19 documented as of this encounter
--- OUTSIDE RECORDS SUMMARY | 2024-07-06 21:41 | XMS_ITS ---
Author Organization [facility] [employer] Address [address] [facility] [address] [place] [address] Care Team Providers Care Women'S Lacrosse Coach Name Role Phone Hayley Davis Unavailable [phone] Allergies No Known Allergies REASON FOR VISIT f/u medication eval, Depression screening positive, PSYCHOTHERAPY W/PATIENT W/E M, bipolar disorderfollow up Medications Medication SIG (Take, Route, Frequency, Duration) Notes Start Date End Date Status LORazepam 0.5 MG Oral 09/10/2023 Ac tive Levothyroxine Sodium 88 MCG Oral 09/10/2023 Active valACYclovir HCl 1 GM Oral 09/10/2023 Active LORATADINE-D 5-120 mg Oral *Reorder f rom Med[employer] for eRx and Interaction Alerts* 09/10/2023 Active Flovent HFA 110 MCG/ACT Inhalation 09/10/2023 Unknown Betamethasone Dipropionate 0.05 % External 09/10/2023 Active ARIPiprazole 5 MG 1 tablet Orally Once a day for 90 days Active traZODone HCl 100 MG 1 tablet Oral Once a day for 90 days do not fill until pt requests Active Levothyroxine Sodium 100 MCG Oral 09/10/2023 Active Benzonatate 200 MG Oral 09/10/2023 Active buPROPion HCl ER (XL) 150 MG 1 tablet every morning Orally Once a day for 90 days take together with 300 mg tab for total daily dose of 450 mg each morning Active buPROPion HCl ER (XL) 300 MG 1 tablet every morning Oral Once a day for 90 days take together with 150 mg tab for total daily dose of 450 mg each morning Active Trintellix 20 MG 1 tablet Oral Once a day for 90 days do not fill until pt requests Active Social History Sex Assigned At : Social History Observation Description Sex Assigned At Female Vital Signs Blood pressure systolic 153 mm Hg 04/30/20 24 Blood pressure diastolic 94 mm Hg 024 Heart Rate 77 /min 04/30/2024 Height 62.00 in 04/30/2024 Weight 119.0 lbs 04/30/2024 BMI 21.76 kg/m2 04/30/2024 Height-cm 157.48 cm 04/30/2024 Weight-kg 53.98 kg 04/30/2024 Encounters Encounter Location Date Provider Diagnosis [facility] [employer] [facility] [address] [facility] [address] [place] [address] 04/30/2024 Hayley Davis Bipolar disorder, current episode depressed, mild F31.31 ; Post-traumatic stress disorder, unspecified F43.10 ; Generalized anxiety disorder F41.1 and Suspected neurocognitive disorder R41.89 Assessments Encounter Date Diagnosis (ICD Code) Assessment Notes Treatment Notes Treatment Clinical Notes Section Notes 04/30/2024 Bipolar disorder, current episode depressed, mild (ICD-10 - F31.31) 04/30/2024 Post-traumatic stress disorder, unspecified (ICD-10 - F43.10) 04/30/2024 Generalized anxiety disorder (ICD-10 - F41.1) 04/30/2024 Suspected neurocognitive disorder (ICD-10 - R41.89) placed call to pt's PCP Ember Sahni after appt, waiting for call back to discuss abnormal SLUMS eval 04/30/2024 Other Plan Of Treatment Medication Medication Name Sig Start Date Stop Date Notes ARIPiprazole 5 MG 1 tablet Orally Once a day for 90 days traZODone HCl 100 MG 1 tablet Oral Once a day for 90 days do not fill until pt requests buPROPion HCl ER (XL) 150 MG 1 tablet every morning Orally Once a day for 90 days buPROPion HCl ER (XL) 300 MG 1 tablet every morning Oral Once a day for 90 days Trintellix 20 MG 1 tablet Oral Once a day for 90 days do not fill until pt requests Treatment Notes Assessment Notes Suspected neurocognitive disorder placed call to pt's PCP Ember Sahni after appt, waiting for call back to discuss abnormal SLUMS eval Next Appt Details Follow Up: 4 Weeks, Reason: bipolar d/o, ptsd, charleen, neurocognitive d/o Provider Name:Lala Alonso , 07/22/2024 11:15:00 AM, [address], [address], [place], [address], Progress Notes * YAKOV E[birth year]SDOB:[birth year] (69 yo F)Acc No.[id number]:04/30/2024 Patient: YAKOV CANAS Provider: Gela DAVIS MD :1955 A ge:69 Y S ex:Female Date:04/30/2024 Address: [id number] Subjective: * Chief Complaints: * 1 . F/u medication eval. 2. Depression screening positive. 3. PSYCHOTHERAPY W/PATIENT W/E M. 4. Bipolar disorder follow up. * HPI: D epression screening: PHQ-9 L ittle interest or pleasure in doing things M ore than half the days, F eeling down, depressed, or hopeless S everal days, T rouble falling or staying asleep, or sleeping too much N early every day, F eeling tired or having little energy S everal days, P oor appetite or overeating M ore than half the days, F eeling bad about yourself or that you are a failure, or have let yourself or your family down N ot at all, T rouble concentrating on things, such as reading the newspaper or watching television?More than half the days, M oving or speaking so slowly that other people could have noticed; or the opposite, being so fidgety or restless that you have been moving around a lot more than usual N ot at all, T houghts that you would be better off or of hurting yourself in some way N ot at all, T otal Score 1 1, I nterpretation M oderate Depression. I ntervention D epression Screening Findings P ositve, F ollow-Up for Depression M [facility] treatment assessment, Patient follow-up to return when and if necessary, S uicide Risk Assessment Performed 1 07/01/2023 , A dditional Evaluation for Depression P sychiatric interview and evaluation, N debbie of the standardized tool used for adult depression screening: P atient Health Questionnaire (PHQ-9). D epression Screening: CHARLEEN-7 (2018 Edition) F eeling nervous, anxious, or on edge?More than half the days, N ot being able to stop or control worrying M ore than half the days, W orrying too much about different things M ore than hafl the days, T rouble relaxing M ore than half the days, B eing so restless that it is hard to sit still M ore than half the days, B ecoming easily annoyed or irritable M ore than half the days, F eeling afraid as if something awful might happen N ot at all, T otal CHARLEEN-7 Score 1 2, I nterpretation of Total ( 10 to 14) Moderate. F unctional Status: I've been having bouts of depression. I'm worried, and my is worried. one day slept from 5 pm to 7 am the next day, other times will go to bed at 8 pm and wake at 4 am; went on trip to [place], visited [place] [place] then [place]--felt fine while on the trip, never fully recovered from jet lag; irritable, short tempered with (Robbie) and son (Michael); does not recall last time she felt this depressed, no thoughts of being better off , not feeling helpless or hopeless planning to go [place] [employer] [facility] in September discussed pt's SLUMS eval from March, particularly abnormal clock drawing, advised to f/u with PCP (spoke to PCP by phone after visit and faxed copy of SLUMS eval to PCP's office). P sychotherapy with Med eval: Therapy with Med eval P sychotherapy with Medication management Y es, P sychotherapy done Time Spent Minute 2 0 to 30 min, T ype of therapy done S upportive Therapy. * Medical History: Kellen magana: Alcohol dependence, Bipolar affective disorder, current episode depression, Body mass index 25-29 - overweight, Essential hypertension, Generalized anxiety disorder, Hypothyroidism, Posttraumatic stress disorder, Primary insomnia, Severe alcohol dependence, ,. * Medications: T aking Benzonatate 200 MG Capsule Oral , Taking Levothyroxine Sodium 100 MCG Tablet Oral , Taking Betamethasone Dipropionate 0.05 % Cream External , Taking Levothyroxine Sodium 88 MCG Tablet Oral , Taking LORATADINE-D 5-120 mg Tablet Extended Release 12 Hour Oral , Notes to Pharmacist: *Reorder from [facility] for eRx and Interaction Alerts*, Taking valACYclovir HCl 1 GM Tablet Oral , Taking LORazepam 0.5 MG Tablet Oral , Taking Trintellix 20 MG Tablet 1 tablet Oral Once a day , Notes to Pharmacist: do not fill until pt requests, Taking buPROPion HCl ER (XL) 300 MG Tablet Extended Release 24 Hour TAKE 1 TABLET BY MOUTH EVERY MORNING , Taking ARIPiprazole 5 MG Tablet TAKE 1 TABLET BY MOUTH EVERY DAY , Taking traZODone HCl 100 MG Tablet 1 tablet Oral Once a day , Notes to Pharmacist: do not fill until pt requests, Unknown Flovent HFA 110 MCG/ACT Aerosol Inhalation , Medication List reviewed and reconciled with the patient * Allergies: N .K.D.A. Objective: * Vitals: B P:153/94mm Hg, HR:77/min, Wt:119.0lbs, Wt-k.98 kg, Ht: 62.00 in, Ht-cm: 157.48 cm, BMI:21.76Index, Body Surface Area: 1.54. * Examination: P sychiatry: Appearance: w ell-groomed, [...] current episode depressed, mild - F31.31 (Primary) 2 .?Post-traumatic stress disorder, unspecified - F43.10 3 . G eneralized anxiety disorder - F41.1 4 . S uspected neurocognitive disorder - R41.89 ? Plan: * Treatment: 2. G eneralized anxiety disorder Refill traZODone HCl Tablet, 100 MG, 1 tablet, Oral, Once a day, 90 days, 90, Refills 0, Notes to Pharmacist: do not fill until pt requests. 3. S uspected neurocognitive disorder Notes: placed call to pt's PCP Ember Sahni after appt, waiting for call back to discuss abnormal SLUMS eval * Procedure Codes: 9 0833 PSYCHOTHERAPY W/PATIENT W/E&M SRVCS 30 MIN, 24503 BEHAV ASSMT W/SCORE & DOCD/STAND INSTRUMENT, G8734 ELDER MALTX SCR DOC NEG NO F/U RQR * Follow Up: 4 Weeks (Reason: bipolar d/o, ptsd, charleen, neurocognitive d/o) * Billing Information: * Visit Code: 31306 OFFICE OUTPATIENT VISIT 25 MINUTES DETAILED HISTORY AND EXAM/MODERATE MEDICAL DECISION MAKING. * Procedure Codes: 30526 PSYCHOTHERAPY W/PATIENT W/E&M SRVCS 30 MIN. 60412 BEHAV ASSMT W/SCORE & DOCD/STAND INSTRUMENT. G8734 ELDER MALTX SCR DOC NEG NO F/U RQR. * ER GRIP MACHINE OPERATOR Sign off status: Completed true * Provider: Gela DAVIS MD Date: 07/01/2023 Generated for Carmen chaves/Trisha/eTransmitting on: 0 07/06/2024 06:40 PM FINGER GRIP MACHINE OPERATOR History and Physical Notes * HPI (History of Present Illness) Category Sub-Category Detail Notes Category Not es Depression screening PHQ-9 Little inte rest or pleasure in doing things: More than half the days Feeling down, depressed, or hopeless: Se veral days Trouble falling or staying asleep, or sl eeping too much: Nearly every day Feeling tired or having little energy: S everal days Poor appetite or overeating: More than h mane the days Feeling bad about yourself o r that you are a failure, or have let yourself or your family down: Not at all Trouble concentrating on thi ngs, such as reading the newspaper or watching television: More than half the days Moving or speaking so slowly that other people could have noticed; or the opposite, being so fidgety or restless that you have been moving around a lot more than usual: Not at all Thoughts that you would be b alfredo off or of hurting yourself in some way: Not at all Total Score: 11 Interpretation: Moderate Depression Intervention Depression Screening Findings: P ositve Follow-Up for Depression: [facility] treatment assessment, Patient follow-up to return when and if necessary Suicide Risk Assessment Performed: 04/30 Additional Evaluation for De pression: Psychiatric interview and evaluation Name of the standardized too l used for adult depression screening:: Patient Health Questionnaire (PHQ-9) Functional Status I've been having bouts of depression. I'm worried, and my is worried. one day slept from 5 pm to 7 am the next day, other times will go to bed at 8 pm and wake at 4 am; went on trip to [place], visited [place] [place] then [place]--felt fine while on the trip, never fully recovered from jet lag; irritable, short tempered with (Robbie) and son (Michael); does not recall last time she felt this depressed, no thoughts of being better off , not feeling helpless or hopeless planning to go on [employer] [place] [facility] September discussed pt's SLUMS eval from March, particularly abnormal clock drawing, advised to f/u with PCP (spoke to PCP by phone after visit and faxed copy of SLUMS eval to PCP's office) Depression Screening CHARLEEN-7 (2018 Edition) Feeling nervous, anxious, or on edge: More than half the days Not being able to stop or control worryi ng: More than half the days Worrying too much about different things : More than hafl the days Trouble relaxing: More than half the day s Being so restless that it is hard to sit still: More than half the days Becoming easily annoyed or irritable: Mo re than half the days Feeling afraid as if something awful shaina ht happen: Not at all Total CHARLEEN-7 Score: 12 Interpretation of Total: (10 to 14) Mode rate Psychotherapy with Med eval Therapy with Med leanne l Psychotherapy with Medication management: Yes Psychotherapy done Time Spent Minute: 20 to 30 min Type of therapy done: Supportive Therapy Examination Category Sub-Category Detail Notes Category Not [...]
--- OUTSIDE RECORDS SUMMARY | 2024-07-06 21:42 | XMS_ITS | Clinical Summary ---
Author Organization [facility] Address [address] [place] [address] Phone Care Team Providers Care Bath Steward Name Role Phone Satnam Madrigal MD Primary Care Provider [phone] Allergies No known active allergies Medications No [...] Anatomical Region Laterality Modality Breast Left Other [facility] Dolores Fraser MD MAMMO ORDERABLES Final R esult from Last 3 Months or Most Recently Relevant to Health Maintenance [place] [address] [place] [id number] Care Teams Bath Steward Relationship Specialty Start Date End Date Satnam Madrigal MD [address] [place] [address] PCP - General Internal Medicine 08/27/13
--- OUTSIDE RECORDS SUMMARY | 2024-07-06 21:42 | XMS_ITS | Clinical Summary ---
Author Organization [facility] Address [address] [place] [address] Phone Care Team Providers Care Vial Gauger Name Role Phone Chriss Ramos MD Unavailable [phone] Arjun Naqvi MD Unavailable [phone] Luis Khoury DPM Unavailable [phone] Allergies No known active allergies Medications [...] Lnp-s, Pf, 3 0 Mcg/0.3 Ml Dose ([employer]) 07/15/2020,06/17/2020 Hepatitis A Vaccine 09/25/2007 Influenza Vaccine [...] this topic Medical Devices Implanted Type Area Outside Installer Apprentice Device Identifier Shelf Expiration Date Model / Serial / Lot Scrw Bone Reconstruction Frs 3.0 X 14mm - [id number] Implanted:Qty: 1 on 11/22/2016 by Luis [facility]houry DPM at [facility] IMPLANT Left: Foot BIOMET / TRAUMA P3014 / P3014 / NA Scrw Bone Reconstruction Frs 3.0 X 16mm - [id number] Implanted:Qty: 1 on 11/22/2016 by Luis Khoury DPM at [facility] IMPLANT Left: Foot BIOMET / TRAUMA P3016 / P3016 / NA Easyclip Staple [id number] - [id number] Implanted:Qty: 1 on 11/22/2016 by Luis Khoury DPM at [facility] IMPLANT Left: Foot ISABELLE / ORTHOPAEDICS 10/09/2020 [id number] / / [id number] Procedures Procedure Name Priority Date/Time Associated Diagnosis [...] Recently Relevant to Health Maintenance Care Teams Vial Gauger Relationship Specialty Start Date End Date Chriss Ramos MD [address] [place] [address] Consulting Physician Orthopaedic Surgery 06/12/16 Arjun Naqvi MD [address] [place] [address] Consulting Physician Psychiatry 06/12/16 Luis Khoury DPM [address] [address] Consulting Physician Podiatry 10/11/16
--- OUTSIDE RECORDS SUMMARY | 2024-07-06 21:42 | XMS_ITS | Patient Health Record ---
Author Organization [facility] Address [address] [place] [address] Care Team Providers Care Oracle Manufacturing Consultant Name Role Phone Hayley Bhakta Unavailable [phone] Migration, Provider Unavailable Unavailable Allergies No Known Allergies Reason For Referral No Information Medications Medication SIG (Take, Route, Frequency, Duration) Notes Start Date End Date Status LORazepam 0.5 MG Oral 09/10/2023 Ac tive buPROPion HCl ER (XL) 300 MG 1 tablet every morning Oral Once a day for 90 days Active valACYclovir HCl 1 GM Oral 09/10/2023 Active Trintellix 20 MG 1 tablet Oral Once a day for 90 days do not fill until pt requests Active buPROPion HCl ER (XL) 150 MG 1 tablet every morning Orally Once a day for 90 days take together with 300 mg tab for total daily dose of 450 mg each morning Active Benzonatate 200 MG Oral 09/10/2023 Active ARIPiprazole 5 MG 1 tablet Orally Once a day for 90 days Active traZODone HCl 100 MG 1 tablet Oral Once a day for 90 days do not fill until pt requests Active Betamethasone Dipropionate 0.05 % External 09/10/2023 Active Levothyroxine Sodium 100 MCG Oral alternates 100 mcg qod and 88 mcg qod 09/10/2023 Active LORATADINE-D 5-120 mg Oral *Reorder f rom Medispan for eRx and Interaction Alerts* 09/10/2023 Active Levothyroxine Sodium 88 MCG Oral alternates 100 mcg qod and 88 mcg qod 09/10/2023 Active Immunizations Vaccine Route Administration Date Status Comme nts Hep A, Adult Unknown 05/12/2007 Administered Hep A, Adult Unknown 09/25/2007 Administered Influenza virus vaccine, quadrivalent (IIV4), split virus, 0.25 mL dosage Unknown 02/25/2017 Administered Influenza virus vaccine, quadrivalent (IIV4), split virus, 0.25 mL dosage Unknown 02/25/2019 Administered Influenza, injectable, MDCK, preservative free Unknown 02/24/2018 Administered Influenza, seasonal, injecta ble, preservative free, 3 yrs and above Unknown 03/04/2013 Administered Influenza, seasonal, injecta ble, preservative free, 3 yrs and above Unknown 05/12/2013 Administered Influenza, seasonal, injecta ble, preservative free, 3 yrs and above Unknown 03/12/2017 Administered Influenza, unspecified formulation Unknown 02/04/2020 A dministered Novel [id number], preservative free Unknown 03/11/2015 Administered Pfizer Biontech Covid-19 Vac cine 2nd dose Unknown 06/17/2020 Administered Pfizer Biontech Covid-19 Vac cine 2nd dose Unknown 07/15/2020 Administered Pfizer Biontech Covid-19 Vac cine 2nd dose Unknown 02/05/2021 Administered Pfizer Biontech Covid-19 Vac cine 2nd dose Unknown 11/21/2021 Administered Pfizer Biontech Covid-19 Vac cine 2nd dose Unknown 02/12/2022 Administered Tdap Unknown 05/12/2008 Administered Tdap Unknown 10/24/2008 Administered Zoster Unknown 03/12/2016 Administered Zoster Unknown 08/12/2017 Administered Zoster Unknown 03/21/2018 Administered Social History Tobacco Use: Social History Observation Description Date Details (start date - stop date) Never Smoker NA - NA Sex Assigned At : Social History Observation Description Sex Assigned At Female Tobacco Control (Standard) Question Answer Notes Tobacco use: Nonsmoker Problems Problem Type SNOMED Code ICD Code Onset Dates Problem Status W/U Status Risk Notes Problem Alcohol dependence (02016959) Alcohol dependence, uncomplicated (F10.20) Active confirmed Problem Bipolar affective disorder, currently depressed, mild (266851336) Bipolar disorder, current episode depressed, mild (F31.31) Active confirmed Problem Generalized anxiety disorder (81918001) Generalized anxiety disorder (F41.1) Active confirmed Problem Post-traumatic stress disorder (40577344) Post-traumatic stress disorder, unspecified (F43.10) Active confirmed Problem Primary insomnia (8718949) Primary insomnia (F51.01) 3 Active confirmed Vital Signs Heart Rate 82 /min 05/28/2024 135/80 Blood pressure diastolic 85 mm Hg 05/28/2024 135 /80 Height-cm 157.48 cm 05/28/2024 135/80 Weight-kg 53.34 kg 05/28/2024 135/80 Height 62.00 in 05/28/2024 135/80 Blood pressure systolic 135 mm Hg 05/28/2024 135/ 80 Weight 117.6 lbs 05/28/2024 135/80 BMI 21.51 kg/m2 05/28/2024 135/80 Encounters Encounter Location Date Provider Diagnosis [place] [address] [address] 08/11/2023 Provider Migration [place] [address] [address] 09/27/2023 Provider Migration [place] [address] [address] 09/28/2023 Provider Migration [facility] [place] [address] [address] 01/13/2024 Thena Yony Primary insomnia F51.01 [facility] [place] [address] [address] 01/15/2024 Thena Yony [place] [address] [address] 04/05/2024 Thena Yony Primary insomnia F51.01 [facility] [place] [address] [address] 01/16/2024 Thena Yony [place] [address] [address] 06/13/2024 [place] [address] [address] 07/11/2023 Thena Yony Post-traumatic stres s disorder, unspecified F43.10 ; Generalized anxiety disorder F41.1 ; Alcohol dependence, uncomplicated F10.20 and Bipolar disorder, current episode depressed, mild F31.[address] [address] 09/10/2023 Thena Yony Generalized anxiety disorder F41.1 and Bipolar disorder, current episode depressed, mild F31.[address] [address] 09/05/2023 Provider Migration Bipolar disorder, current episode depressed, mild F31.[address] [address] 08/15/2023 Provider Migration Bipolar disorder, current episode depressed, mild F31.[address] [address] 12/29/2023 Thena Yony Bipolar disorder, current episode depressed, mild F31.31 ; Post-traumatic stress disorder, unspecified F43.10 ; Generalized anxiety disorder F41.1 and Primary insomnia F51.[address] [address] 04/30/2024 Thena Yony Bipolar disorder, current episode depressed, mild F31.31 ; Post-traumatic stress disorder, unspecified F43.10 ; Generalized anxiety disorder F41.1 and Suspected neurocognitive disorder R41.[address] [address] 05/28/2024 Thena Yony Bipolar disorder, current episode depressed, mild F31.31 Assessments Encounter Date Diagnosis (ICD Code) Assessment Notes Treatment Notes Treatment Clinical Notes Section Notes 12/29/2023 Bipolar disorder, current episode depressed, mild (ICD-10 - F31.31) 01/13/2024 Primary insomnia (ICD-10 - F51.01) 04/30/2024 Bipolar disorder, current episode depressed, mild (ICD-10 - F31.31) 04/05/2024 Primary insomnia (ICD-10 - F51.01) 12/29/2023 Post-traumatic stress disorder, unspecified (ICD-10 - F43.10) 04/30/2024 Post-traumatic stress disorder, unspecified (ICD-10 - F43.10) 08/15/2023 Bipolar disorder, current episode depressed, mild (ICD-10 - F31.31) 05/28/2024 Bipolar disorder, current episode depressed, mild (ICD-10 - F31.31) 09/10/2023 Bipolar disorder, current episode depressed, mild (ICD-10 - F31.31) 09/10/2023 Generalized anxiety disorder (ICD-10 - F41.1) 09/05/2023 Bipolar disorder, current episode depressed, mild (ICD-10 - F31.31) 07/11/2023 Alcohol dependence, uncomplicated (ICD-10 - F10.20) 07/11/2023 Bipolar disorder, current episode depressed, mild (ICD-10 - F31.31) 07/11/2023 Generalized anxiety disorder (ICD-10 - F41.1) 07/11/2023 Post-traumatic stress disorder, unspecified (ICD-10 - F43.10) 12/29/2023 Generalized anxiety disorder (ICD-10 - F41.1) 04/30/2024 Generalized anxiety disorder (ICD-10 - F41.1) 12/29/2023 Primary insomnia (ICD-10 - F51.01) 04/30/2024 Suspected neurocognitive disorder (ICD-10 - R41.89) placed call to pt's PCP Ember Sahni after appt, waiting for call back to discuss abnormal SLUMS eval 04/30/2024 Other 04/01/2024 Other referral to the local chapter or national office of the Alzheimer's Association ( ; http://www.alz. org), the Alzheimer's Disease Education and Referral Center (ADEAR) ( ; http://www.elkin. nih.gov/Alzheim ers/), Plan Of Treatment Next Appt Details Provider Name:Lala Alonso , 07/22/2024 11:15:00 AM, [address], [facility] [address], [place], [address], Insurance Providers Payer Name Payer Address Payer Phone Subscriber Number Group Number Insured Name Patient Relationship to Insured Coverage Start Date Coverage End Date [employer] Medicare Replacemen t/Advantag e - Ppo [address] [address] [place] [address] [id number] YAKOV GUALLPA Self - patient is the insured Medical (General) History Medical History History ICD Code Problems: Alcohol dependence Bipolar affective disorder, current epis ode depression Body mass index 25-29 - overweight Essential hypertension Generalized anxiety disorder Hypothyroidism Posttraumatic stress disorder Primary insomnia Severe alcohol dependence , Surgical History Surgery Date(Month/Year) Other Reconstructive surgery 06/12/2019 Arthroplasty of right shoulder ([id number]) 06/14/2022 Any surgical history 06/23/2022 Cosmetic surgery 09/11/2021 Breast surgery (95694) 09/11/2021 Other 10/11/2013 Tonsilectomy/adenoids 10/30/1959 Any surgical history 02/09/1991 Other 05/08/2022
--- OUTSIDE RECORDS SUMMARY | 2024-07-06 21:42 | XMS_ITS | Referral Summary ---
Author Organization [facility] Address [address] [place] [address] Care Team Providers Care Event Management Consultant Name Role Phone Ember Sahni MD Primary Care Provider + Encounters Date Type Department Care Team Description 07/06/2024 [facility] [address] [place] [address] 5th [place] [address] Mary Hurtado 06/18/2024 2:50 PM LEATHER LACER Clinical Support [facility] [address] [place] [address] 5th [place] [phone] Osteopenia of left hip (Primary Dx); Postmenopause 05/28/2024 [facility] 5th [place] [address] Ember Jimenez MBA Info 05/26/2024 10:00 AM LEATHER LACER Office Visit [facility] [address] [place] [address] 5th [place] [address] Ember Sahni MD Hypothyroidism determined by thyroid function test (Primary Dx); Hypothyroidism, unspecified type; Alcoholism (CMS/HCC) ([facility]); Vitamin B12 deficiency 05/21/2024 [facility] [address] [place] [address] 5th [place] [address] Ember Jimenez MBA Medication correction 05/03/2024 [facility] [address] [place] [address] 5th [place] [address] PablitoMerlyn casehy 04/30/2024 Orders Only [facility] [address] [facility] 5th [place] [address] [place] [address] Ember Sahni MD Postmenopause (Primary Dx) 04/30/2024 Telephone [facility] [address] [facility] 5th [place] [address] [place] [address] Ember Jimenez MBA Discuss her visit with [...] (06/06/2022): Added automatically from request for surgery [id number] S/P reverse total shoulder arthroplasty, right 0 05/22/2022 Glenohumeral arthritis, right 05/22/2022 Ptosis of breast 12/19/2021 Overview (12/19/2021): Added automatically from request for surgery [id number] Vitamin B12 deficiency 09/13/2020 Physical exam 09/13/2020 [...] st 02/24/2018 Elevated liver enzymes 10/23/2017 Alcoholism ([facility]) 10/17/2017 Avascular necrosis of left femur 07/21/2017 Bipolar 2 disorder ([facility]) 07/21/2017 Hyperlipidemia 07/21/2017 Hypertensive disorder 07/21/2017 Contracture [...] on file Legal Sex Female 2:14 AM LEATHER LACER Gender Identity Not on file Sexual Orientation [...] 53.1 kg (117 lb) 05/26/2024 9:29 AM LEATHER LACER Height 156.2 cm (5' 1.5 ) 12/29/2023 10:33 AM CD T Body Mass Index 21.75 12/29/2023 10:33 AM CDT Plan of Treatment Not on file Goals Goal Patient Goal Type Associated Problems Recent Progress Patient-Stated? Author CCM Chronic Pain Care Plan Chronic Care Management No change(05/08 9:34 AM LEATHER LACER) No Marla Luna, RN Note: Problem: Chronic Pain Goals: 1. Minimize further functional decline 2. Maximize quality of life 3. Control pain Strategies: - Activity/exercise program recommendation - Conservative stepwise pain medicine strategy with multi-disciplinary approach - Recommend healthy lifestyle strategies and compensatory methods as needed Medical Devices Implanted Type Area City Detective Device Identifier Shelf Expiration Date Model / Serial / Lot Sientra Breast Implant 335cc Implanted:Qty: 1 on 09/11/2021 by Annel Lewis MD at [facility] Breast Left: Breast [employer] Inc 07/05/2026 [id number] / [id number] / Sientra Breast Implant 335cc Implanted:Qty: 1 on 09/11/2021 by Annel Lewis MD at [facility] Breast Right: Breast S[employer] Inc 06/19/2026 [id number] [id number] / [id number] / [employer] Od25 Mm Full Wedge Augment Shoulder 15 D Baseplate Glenoid [id number] - [id number] - [id number] Implanted:Qty: 1 on 05/22/2022 by Humza Steele MD at [facility] Other - see comments Right: Shoulder [employer] 02/21/2027 [id number] / [id number] / [employer] Tornier Aequalis Perform 15mm Press Fit Long Post Shoulder [id number] - [id number] - [id number] Implanted:Qty: 1 on 05/22/2022 by Humza Steele MD at [facility] Other - see comments Right: Shoulder [employer] 12/04/2026 [id number] / [id number] / [employer] Tornier Aequalis Perform 36mm Reverse Shoulder Standard Sphere Cwz858 - [id number] - [id number] Implanted:Qty: 1 on 05/22/2022 by Humza Steele MD at [facility] Other - see comments Right: Shoulder [employer] 02/26/2027 [id number] / [id number] / [employer] Aequalis Perform Reversed 5mm 22mm Peripheral Glenoid Screw [id number] - [id number] Implanted:Qty: 2 on 05/22/2022 by Humza Steele MD at [facility] Other - see comments Right: Shoulder [employer] [id number] / / [employer] Aequalis Perform Reversed 5mm 30mm Peripheral Glenoid Screw Hbp984 - [id number] Implanted:Qty: 1 on 05/22/2022 by Humza Steele MD at [facility] Other - see comments Right: Shoulder [employer] NJK244 / / [employer] Stem Perform Sz 2 Humeral Dwx2ss - [id number] - [id number] Implanted:Qty: 1 on 05/22/2022 by Humza Steele MD at [facility] Other - see comments Right: Shoulder [employer] 10/12/2026 DWX2SS / [id number] / [employer] Insert Perform Ret [id number] [id number] - [id number] - [id number] Implanted:Qty: 1 on 05/22/2022 by Humza Steele MD at [facility] Other - see comments Right: Shoulder [employer] 05/02/2025 [id number] / [id number] / [employer] Latitude 8-15mm Restrictor Elbow Restrictor Cement Dqa028 - [id number] - [id number] Implanted:Qty: 1 on 06/14/2022 by Humza Steele MD at [facility] [employer] [id number] 01/18/2027 [id number] / [id number] / [employer] Simplex P Radiopaque Full Dose Cement Bone Sterile 6191-1-010 - [id number] Implanted:Qty: 1 on 06/14/2022 by Humza Steele MD at [facility] [employer] 10/09/2024 6191-1-01 0 / / [employer] Simplex P Radiopaque Full Dose Cement Bone Sterile 6191-1-010 - [id number] Implanted:Qty: 1 on 06/14/2022 [facility] 11/08/2024 6191-1-01 0 / / S[employer] Inc Stem Perform Sz 1 Plus Humeral Long Dwx1pl - [id number] Implanted:Qty: 1 on 06/14/2022 by Humza Steele MD at [facility] [employer] 01/17/2027 [id number] / / S[employer] Inc [id number] Insert Perform [id number] - [id number] Implanted:Qty: 1 on 06/14/2022 by Humza Steele MD at [facility] [employer] 04/10/2026 [id number] / / Allosource Freeze Dried Chips 1-10mm Graft 15ml Bone Cancellous [id number] - [id number] - [id number] Implanted:Qty: 1 on 04/01/2023 by Amara Pearson MD at [facility] [employer] 08/22/2027 [id number] / [id number] / [id number] Synthes 3.5mm 6mm 150mm 2.5mm Self Tap Low Profile Small Hexagonal Socket 204.750 - [id number] Implanted:Qty: 1 on 04/01/2023 by Amara Pearson MD at [facility] Synthes I 204.750 / / [employer]/ Ortho Evos Mini 71mm 3 Hole Head 9 Hole Shaft Low Profile Variable [id number] - [id number] Implanted:Qty: 1 on 04/01/2023 by Amara Pearson MD at [facility] [employer]/ Ortho [id number] / / [employer]/ Ortho 2.7mm 4.5mm 28mm Self Tap Cortex T8 2mm Screw Bone Evos [id number] - [id number] Implanted:Qty: 1 on 04/01/2023 by Amara Pearson MD at [facility] [employer]/ Ortho [id number] / / [employer]/ Ortho Evos Mini 2.7mm 4.5mm 38mm Self Tap Cortex T8 Screw Bone Sterile [id number] - [id number] Implanted:Qty: 1 on 04/01/2023 by Amara Pearson MD at [facility] [employer]/ Ortho [id number] / / [employer]/ Ortho Evos 2.7mm 4.5mm 18mm Self Tap Cortex T8 Screw Bone Nonsterile [id number] - [id number] Implanted:Qty: 1 on 04/01/2023 by Amara Pearson MD at [facility] [employer]/ Ortho [id number] / / Procedures Procedure Name Priority Date/Time Associated Diagnosis Comments DEXA AXIAL SKELETON BONE DENSITY 1 OR MORE SITES Schedule Routine, Read Routine (OP Routine) 06/18/2024 2:39 PM LEATHER LACER Postmenopause VITAMIN B12 Routine 05/26/2024 9:59 AM LEATHER LACER Vitamin B12 deficiency T4, FREE Routine 05/26/2024 9:59 AM LEATHER LACER Hypothyroidism determined by thyroid function test TSH Routine 05/26/2024 9:59 AM LEATHER LACER Hypothyroidism determined by thyroid function test COMPREHENSIVE METABOLIC PANEL Routine 05/26/2024 9:59 AM LEATHER LACER Alcoholism (CMS/HCC) (HCC) CBC WITH AUTO DIFFERENTIAL Routine 05/26/2024 9:59 AM LEATHER LACER Alcoholism (CMS/HCC) (HCC) SCREENING MAMMOGRAM 2D BILATERAL Routine 08/05/2013 3:09 PM CDT from Last 3 Months or Most Recently Relevant to Health Maintenance Results * Dexa Axial Skeleton Bone Density 1 or 2 Site (06/18/2024 2:39 PM LEATHER LACER) Anatomical Region Laterality Modality Body N/A Radiographic Martina ging Narrative 06/19/2024 4:40 PM LEATHER LACER Patient Name: Ann Mcintosh Date of : 1955 Date of scan: 06/18/2024 Bone mineral density was performed on a HoloMultiplicom Discovery Densitometer. Based on machine cross-calibration and [...] by the International Society of Clinical Densitometry. [id number] Ember Sahni MD [facility] DXA PROCEDURES Final Result * (ABNORMAL) CBC with auto differential (05/26/2024 9:59 AM LEATHER LACER) WBC 8.7 3.8 - 10.8 Thousand/u L [...] [facility] Blood 05/26/2024 9:59 AM LEATHER LACER 05/26/2024 9:59 AM LEATHER LACER Ember Sahni MD LAB BLOOD ORDERABLES Fin al Result Performing Organization Address [facility] de Phone Number [facility] [address] [place] [address] * TSH (05/26/2024 9:59 AM LEATHER LACER) TSH 1.97 0.40 - 4.50 mIU/L [facility] Blood 05/26/2024 9:59 AM LEATHER LACER 05/26/2024 9:59 AM LEATHER LACER Result [facility] Ember Sahni MD LAB BLOOD ORDERABLES Fin al Result Performing Organization Address [facility] de Phone Number [facility] [address] [place] [address] * T4, free (05/26/2024 9:59 AM LEATHER LACER) Free T4 1.4 0.8 - 1.8 ng/dL [facility] Blood 05/26/2024 9:59 AM LEATHER LACER 05/26/2024 9:59 AM LEATHER LACER Ember Sahni MD LAB BLOOD ORDERABLES Fin al Result Performing Organization Address [facility] de Phone Number [employer] [facility] [address] [place] [address] * Vitamin B12 (05/26/2024 9:59 AM LEATHER LACER) [facility] Vitamin B12 312 200 - 1,100 [...] will have symptoms. Blood 05/26/2024 9:59 AM LEATHER LACER 05/26/2024 9:59 AM LEATHER LACER us Ember Sahni MD LAB BLOOD ORDERABLES Fin al Result Performing Organization Address [facility] de Phone Number [email or web address] [address] [place] [address] * Comprehensive metabolic panel (05/26/2024 9:59 AM LEATHER LACER) [facility] Glucose 86 65 - 99 mg/dL [...] [facility] Blood 05/26/2024 9:59 AM LEATHER LACER 05/26/2024 9:59 AM LEATHER LACER us Ember Sahni MD LAB BLOOD ORDERABLES Fin al Result [facility] [address] [place] [address] * Screening Mammogram 2D Bilateral (08/05/2013 3:09 [...] Almonte M.D. KL:td 07:34 AM 07:34 AM [facility] [EOD] Alva Fraser MD IMG MAMMO PROCEDURES Final Resu lt from Last 3 Months or Most Recently Relevant to Health Maintenance Insurance [facility] CHOICE PLUS [employer] CHOICE MEDICARE PPO [employer] CHOICE MEDICARE PPO [employer] CHOICE MEDICARE PPO [employer] CHOICE MEDICARE PPO Advance Directives For more information, please contact: [phone] Documents on File Type Date Recorded Patient Media Producer Expl anation ADVANCE DIRECTIVE 05/22/2022 6:11 AM Lacyin glen Will Advance Directives and Livin g Will 09/11/2021 8:19 AM * Full Code (Latest Code Status on File) Date Activated Date Inactivated Comments 06/14/2022 1:56 PM 06/15/2022 4:06 PM * Full Code Date Activated Date Inactivated Comments 05/22/2022 12:40 PM 05/23/2022 5:14 PM Care Teams Event Management Consultant Relationship Specialty Start Date End Date Ember Sahni MD [address] [address] PCP - General Internal Medicine 02/11/19
== END 2024-07-06 21:00 | disposition left against medical advice (07) ==
LOC: ANHED 21:39
PROVIDERS: Emergency Provider Emergency Medicine
DX: R41.0 Disorientation, unspecified (principal)
CPT/HCPCS: 82948; 99199